=== PATIENT | male | born 1935 | race Caucasian/White ===

== ENCOUNTER → 2018-09-06 | Outpatient (REF) | payer MEDICARE ==
[~2018-09-06] MED LIST: ALLO300T2 PO; ASPI81TA85 PO; ATEN25TA PO; CARD8TAB2 PO; DOXA4TAB PO; ENAL20TA PO; TYLE325T5 PO; TYLE650T30 PO
[2018-09-06 13:58] LABS: APPEARANCE, URINE CLEAR (CLEAR); BACTERIA, URINE AUTO NEGATIVE (NEGATIVE); BILIRUBIN, URINE AUTO NEGATIVE (NEGATIVE); BLOOD, URINE BLOOD 1+ (NEGATIVE); COLOR, URINE YELLOW (YELLOW); GLUCOSE, URINE (UA) AUTO NEGATIVE (NEGATIVE); KETONE, URINE AUTO NEGATIVE (NEGATIVE); LEUKOCYTE ESTERASE, URINE AUTO NEGATIVE (NEGATIVE); NITRITE, URINE AUTO NEGATIVE (NEGATIVE); PROTEIN, URINE AUTO NEGATIVE (NEGATIVE); RBC, URINE AUTO 5 /HPF (0-3); SQUAMOUS EPITHELIAL CELL UR AU 0 /HPF (0-6); UROBILINOGEN, URINE AUTO 0.2 mg/dL (0.0-2.0); WBC, URINE AUTO 0 /HPF (0-3)
== END ==
LOC: M SMT 13:01
PROVIDERS: ATTEND Nurse Practitioner Family
DX: R32 Unspecified urinary incontinence (principal)
CPT/HCPCS: 51798; 81001; 87086; G0463

== ENCOUNTER → 2018-10-19 | Outpatient (REF) | payer MEDICARE ==
[~2018-10-19] MED LIST changes: +B-122500 PO; +CALC1TAB74 PO; +DOXA1TAB40 PO; +ECOT81TA5 PO; +HYDR-3910 PO; +TOLT2CAP4 PO; +TYLE650T35 PO; +ZYLO300T6 PO
[2018-10-19 14:16] LABS: APPEARANCE, URINE CLEAR (CLEAR); BACTERIA, URINE AUTO NEGATIVE (NEGATIVE); BILIRUBIN, URINE AUTO NEGATIVE (NEGATIVE); BLOOD, URINE BLOOD 1+ (NEGATIVE); COLOR, URINE YELLOW (YELLOW); GLUCOSE, URINE (UA) AUTO NEGATIVE (NEGATIVE); KETONE, URINE AUTO NEGATIVE (NEGATIVE); LEUKOCYTE ESTERASE, URINE AUTO NEGATIVE (NEGATIVE); MUCUS, URINE SMALL (NEGATIVE); NITRITE, URINE AUTO NEGATIVE (NEGATIVE); PROTEIN, URINE AUTO 1+ mg/dL (NEGATIVE); RBC, URINE AUTO 2 /HPF (0-3); SPECIFIC GRAVITY URINE AUTO 1.016 (1.002-1.035); SQUAMOUS EPITHELIAL CELL UR AU 0 /HPF (0-6); UROBILINOGEN, URINE AUTO 0.2 mg/dL (0.0-2.0); WBC, URINE AUTO 1 /HPF (0-3)
== END ==
LOC: M LAB REF 13:34
PROVIDERS: ATTEND Nurse Practitioner Family
DX: R31.29 Other microscopic hematuria (principal)
CPT/HCPCS: 51798; 81001; 87086; G0463

== ENCOUNTER 2018-10-22 10:07 | Inpatient (IN) | payer MEDICARE ==
[~2018-10-22] VITALS: Ht 180.3 cm; Wt 95.1 kg
[2018-10-22] VITALS (14 sets, daily range): BP systolic 116–188; BP diastolic 63–88
[~2018-10-22 10:07] MED LIST changes: -B-122500 PO; -CALC1TAB74 PO; -DOXA1TAB40 PO; -ECOT81TA5 PO; -HYDR-3910 PO; -TOLT2CAP4 PO; -TYLE650T35 PO; -ZYLO300T6 PO
[2018-10-22] MEDS ORDERED: ENAL20TA PO ×2 (10:22→13:54)
[2018-10-22] MEDS ORDERED: HYDR-3910 PO (10:22)
[2018-10-22 10:56] LABS: BASO % 0.6 % (0.0-1.0); EOS # 0.1 10^3/uL (0.0-0.5); EOS % 1.1 % (0.0-3.0); HEMATOCRIT 42.2 % (42.0-52.0); LYMPH % 13.7 % (24.0-44.0); MEAN CORPUSCULAR HEMOGLOBIN 32.7 pg (27.0-33.0); MEAN CORPUSCULAR HGB CONC 33.2 g/dl (32.0-36.5); MEAN CORPUSCULAR VOLUME 98.6 fl (80.0-96.0); MONO # 0.5 10^3/uL (0.0-0.8); MONO % 7.3 % (0.0-5.0); NEUTROPHILS # 5.4 10^3/uL (1.5-8.5); NEUTROPHILS % 77.2 % (36.0-66.0); PLATELET COUNT, AUTOMATED 166 10^3/uL (150-450); RED BLOOD COUNT 4.28 10^6/uL (4.30-6.10)
--- NOTE | 2018-10-22 11:16 | REP ---
Clinical: Shortness of breath. Technique: Portable semiupright view of the chest. Comparison: 07/08/2012. Findings: Cardiomegaly is appreciated along with bibasilar infiltrates and suspected layering effusions (left greater than right). Differential diagnosis includes multifocal pneumonia as well as early pulmonary edema. No pneumothorax. Skeletal structures are intact. Impression: Multifocal infiltrates with small layering effusions versus early pulmonary edema. Electronically Signed by Hira Adamson MD 10/22/2018 11:07 A
[2018-10-22 11:27] LABS: CK-MB VALUE MASS 3.3 NG/ML (<3.6); CREATININE FOR GFR 1.3 MG/DL (0.70-1.30); GLOMERULAR FILTRATION RATE 56.1 (>35); MB/CK RELATIVE INDEX 2.46 (< OR =4); POTASSIUM SERUM 3.8 MEQ/L (3.5-5.1); TROPONIN I 0.41 NG/ML (< 0.10)
[2018-10-22 13:07] LABS: CK-MB VALUE MASS 2.9 NG/ML (<3.6); MB/CK RELATIVE INDEX 2.59 (< OR =4); TROPONIN I 0.38 NG/ML (< 0.10)
--- NOTE | 2018-10-22 13:07 | REP ---
Clinical: Shortness of breath. Technique: Axial noncontrast images from the thoracic inlet to the upper abdomen with coronal and sagittal re-formations. Comparison: None. Findings: There is a 3 cm non solid ill-defined area of density in the right upper lobe (image 20), and a 3 cm near solid density in the apical right lower lobe (image 48). Small to moderate bilateral pleural effusions along with scattered areas of infiltrate/atelectasis involving the lingula and lower lobes are also identified as well as cardiomegaly and a small pericardial effusion with evidence for cephalization and pulmonary vascular prominence. Mediastinal and hilar lymph nodes appear reactive and measure up to approximately 15 mm. Tracheobronchial tree is relatively patent. No pneumothorax. Atherosclerotic changes to the thoracic aorta and coronary arteries noted without aortic aneurysm. Surrounding musculoskeletal structures demonstrate degenerative changes without focal osseous abnormality. Impression: 1. Findings are compatible with pulmonary edema as well as patchy ill-defined opacities and areas of consolidation which require follow-up to resolution. Superimposed multifocal pneumonia as well as further pathology including malignancy cannot be excluded. Electronically Signed by Hira Adamson MD 10/22/2018 12:59 P
[2018-10-22] MEDS ORDERED: FUROSEMIDE 40 MG/4 ML VIAL (J1940) IV ONE (13:15)
[2018-10-22] MEDS ORDERED: **hydrALAZINE HCL** 25 MG TAB PO ONE (13:30)
[2018-10-22] MEDS: FUROSEMIDE 40 MG/4 ML VIAL (J1940) IV SCH ×2 (13:41→20:13)
[2018-10-22] MEDS ORDERED: TOLT2CAP4 PO (13:54)
[2018-10-22] MEDS ORDERED: B-122500 PO (13:54)
[2018-10-22] MEDS ORDERED: DOXA1TAB40 PO (13:54)
[2018-10-22] MEDS ORDERED: ECOT81TA5 PO (13:54)
[2018-10-22] MEDS ORDERED: ZYLO300T6 PO (13:54)
[2018-10-22] MEDS ORDERED: TYLE650T35 PO (13:54)
[2018-10-22] MEDS ORDERED: CALC1TAB74 PO (13:54)
--- NOTE | 2018-10-22 14:48 | HPEPDOC ---
[facility] Medical History & Physical Date of Admission Oct 22, 2018 Date of Service: Oct 22, 2018 History and Physical CHIEF COMPLAINT: sob HISTORY OF PRESENT ILLNESS: 83 yo male with several day history of worsening shortness of breath, dyspnea on exertion and orthopnea. Also notes 10 lbs unintentional weight gain. Denies chest pain, abdominal pain, nausea, vomiting or diarrhea. PAST MEDICAL HISTORY: 1. PAC's 2. HTN 3. prostate CA s/p seeding 2005 4. ELADIA PAST SURGICAL HISTORY: 1. right kidney surgery due to ureteral obstruction - 2014 - nikolas Joe SOCIAL HISTORY: Marital status: 61 years Tobacco use: never smoked ALLERGIES: Please see below. REVIEW OF SYSTEMS: Negative except as per HPI. HOME MEDICATIONS: Please see below. PHYSICAL EXAMINATION: VITAL SIGNS: See below GENERAL APPEARANCE: NAD, lying comfortably in bed, elderly HEENT: NC/AT, EOMI, PERRL, nasal cannula in place CARDIOVASCULAR: +S1S2, irregular LUNGS: bilateral crackles ABDOMEN: soft, NT, +BS EXTREMITIES: trace peripheral edema LABORATORY DATA: See below. MICROBIOLOGY: Please see below. ASSESSMENT: 83 yo male for decompensated heart failure, with PMHx HTN, prostate CA. #acute hypoxic respiratory failure - appears secondary to CHF possibly complicated with PNA #CHF - unknown type - echo pending - IV lasix, telemetry monitoring - I/O's, daily weight #bradycardia/pauses - difficult to ascertain if symptomatic as patient is SOB with fluid overload - cardiology c/s pending - thyroid profile pending #CAP - start ceftriaxone/azithro - check SCx, respiratory panel - check procalcitonin - IS/acapella #HTN - continue home meds - hydralazine, ACEI #DVT prophylaxis - heparin SC Vital Signs Vital Signs Date Time Temp Pulse Resp B/P (MAP) Pulse Ox O2 Delivery O2 Flow Rate FiO2 10/22/18 13:41 174/85 10/22/18 12:15 72 96 Nasal Cannula 2.0 10/22/18 10:45 24 10/22/18 10:07 98.0 Laboratory Data Labs 24H Laboratory Tests 2 10/22/18 10:40: Immature Granulocyte % (Auto) 0.1, White Blood Count 7.0, Red Blood Count 4.28L, Hemoglobin 14.0, Hematocrit 42.2, Mean Corpuscular Volume 98.6H, Mean Corpuscular Hemoglobin 32.7, Mean Corpuscular Hemoglobin Concent 33.2, Red Cell Distribution Width 14.6H, Platelet Count 166, Neutrophils (%) (Auto) 77.2H, Lymphocytes (%) (Auto) 13.7L, Monocytes (%) (Auto) 7.3H, Eosinophils (%) (Auto) 1.1, Basophils (%) (Auto) 0.6, Neutrophils # (Auto) 5.4, Lymphocytes # (Auto) 1.0L, Monocytes # (Auto) 0.5, Eosinophils # (Auto) 0.1, Basophils # (Auto) 0.0, Nucleated Red Blood Cells % (auto) 0.0, Anion Gap 7L, Glomerular Filtration Rate 56.1, Blood Urea Nitrogen 24H, Creatinine 1.30, Sodium Level 140, Potassium Level 3.8, Chloride Level 105, Carbon Dioxide Level 28, Calcium Level 9.0, Total Creatine Kinase 134, Creatine Kinase MB 3.3, Creatine Kinase MB Relative Index 2.46, Troponin I 0.41H, RV-Tfa-V-Type Natriuretic Peptide [id number] 10/22/18 12:28: Total Creatine Kinase 112, Creatine Kinase MB 2.9, Creatine Kinase MB Relative Index 2.59, Troponin I 0.38H CBC/BMP Laboratory Tests 10/22/18 10:40 Red Blood Count 4.28 L, Mean Corpuscular Volume 98.6 H, Mean Corpuscular Hemoglobin 32.7, Mean Corpuscular Hemoglobin Concent 33.2, Red Cell Distribution Width 14.6 H, Neutrophils (%) (Auto) 77.2 H, Lymphocytes (%) (Auto) 13.7 L, Monocytes (%) (Auto) 7.3 H, Eosinophils (%) (Auto) 1.1, Basophils (%) (Auto) 0.6, Neutrophils # (Auto) 5.4, Lymphocytes # (Auto) 1.0 L, Monocytes # (Auto) 0.5, Eosinophils # (Auto) 0.1, Basophils # (Auto) 0.0, Calcium Level 9.0, Total Creatine Kinase 134 Home Medications Scheduled Allopurinol (Zyloprim) 300 Mg Tablet, 300 MG PO DAILY Aspirin (Ecotrin) 81 Mg Tablet.dr, 81 MG PO DAILY Calcium Carbonate/Vitamin D3 (Calcium 600-Vit D3 400 Tablet) 1 Each Tablet, 1 TAB PO DAILY Cyanocobalamin (Vitamin B-12) (Vitamin B12) 2,500 Mcg Tablet, 2,500 MCG PO DAILY Doxazosin Mesylate (Doxazosin Mesylate) 4 Mg Tablet, 8 MG PO QHS Enalapril Maleate (Enalapril Maleate) 20 Mg Tablet, 20 MG PO BID Hydralazine HCl (Hydralazine HCl) 25 Mg Tablet, 25 MG PO TID Tolterodine Tartrate (Tolterodine Tartrate ER) 2 Mg Cap.er.24h, 2 MG PO DAILY PATIENT HAS NOT STARTED TAKING YET, NEW OF 10/19/18. PATIENT WAS TAKING OXYBUTYNIN 5MG BID, BUT BEGAN EXPERIENCING DRY MOUTH AND A COUGH. UROLOGIST SW ITCHED TO TOLTERODINE Scheduled PRN Acetaminophen (Tylenol Arthritis) 650 Mg Tablet.er, 650 MG PO Q8H PRN for PAIN Allergies Coded Allergies: No Known Allergies (Unverified , 10/22/18) A-FIB/CHADSVASC A-FIB History Current/History of A-Fib/PAF?: No Current PO Anticoag Therapy: No JONES MOREJON MD Oct 22, 2018 14:48
[2018-10-22] MEDS: cefTRIAXone SOD 1 GM in D5W MINI-BAG PLUS 50 ML IV SCH (16:15)
[2018-10-22] MEDS: **hydrALAZINE HCL** 25 MG TAB PO SCH ×2 (16:15→21:53)
[2018-10-22] MEDS: AZITHROMYCIN INJ 500 MG, VIAL MATE ADAPTER 1 EACH in D5W 250 ML IV SCH (17:43)
--- NOTE | 2018-10-22 19:24 | ECGEPIP ---
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
--- NOTE | 2018-10-22 19:27 | ECGEPIP ---
[facility] - ED Test Date: 2018-10-22 Pat Name: BRIANNA VALENTIN Department: Room: - Gender: Male E Tailer: : 1935 Requested By: Erinn Mckee Order Number: [id number] Reading MD: Andrae Park Measurements Intervals [place] Rate: 72 P: MS: 0 QRS: -21 QRSD: 111 T: 135 QT: 452 QTc: 496 Interpretive Statements ATRIAL FIBRILLATION WITH ABERRANT CONDUCTION OR VENTRICULAR PREMATURE COMPLEXES BORDERLINE LEFT AXIS DEVIATION POSSIBLE LEFT VENTRICULAR HYPERTROPHY ST DEVIATION AND MODERATE T-WAVE ABNORMALITY, CONSIDER LATERAL ISCHEMIA SIMILAR TO PRIOR ON SAME DATE Electronically Signed on 10-22-2018 19:27:15 EDT by Andrae Park
--- NOTE | 2018-10-22 19:31 | ECGEPIP ---
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
[2018-10-22 19:48] LABS: CK-MB VALUE MASS 2.8 NG/ML (<3.6); MB/CK RELATIVE INDEX 1.12 (< OR =4); TROPONIN I 0.32 NG/ML (< 0.10)
[2018-10-22 20:03] LABS: FREE THYROXINE INDEX 2.5 % (1.4-3.8); THYROID STIMULATING HORMONE 1.99 uIU/ML (0.358-3.740); THYROXINE (T4) 6.2 UG/DL (4.5-12.0)
[2018-10-22] MEDS ORDERED: DOXAZOSIN MESYLATE 4 MG TAB PO SCH (21:00)
[2018-10-22 21:45] LABS: CALCIUM LEVEL 8.6 MG/DL (8.8-10.2); CREATININE FOR GFR 1.23 MG/DL (0.70-1.30); GLOMERULAR FILTRATION RATE 59.8 (>35); MAGNESIUM LEVEL 2.1 MG/DL (1.8-2.4); POTASSIUM SERUM 3.5 MEQ/L (3.5-5.1)
[2018-10-22] MEDS: HEPARIN SOD (PORCINE) 5000 UNITS/ML VIAL SQ SCH (21:52)
[2018-10-22] MEDS: ENALAPRIL MALEATE 10 MG TAB PO SCH (22:15)
[2018-10-23] VITALS (19 sets, daily range): BP systolic 72–157; BP diastolic 56–99
[2018-10-23] MEDS: FUROSEMIDE 40 MG/4 ML VIAL (J1940) IV SCH ×4 (02:18→17:43)
[2018-10-23] MEDS: HEPARIN SOD (PORCINE) 5000 UNITS/ML VIAL SQ SCH ×2 (05:26→15:31)
[2018-10-23 05:28] LABS: HEMATOCRIT 42.3 % (42.0-52.0); HEMOGLOBIN 14.1 g/dl (13.5-17.5); MEAN CORPUSCULAR HEMOGLOBIN 31.9 pg (27.0-33.0); MEAN CORPUSCULAR HGB CONC 33.3 g/dl (32.0-36.5); MEAN CORPUSCULAR VOLUME 95.7 fl (80.0-96.0); PLATELET COUNT, AUTOMATED 189 10^3/uL (150-450); RED BLOOD COUNT 4.42 10^6/uL (4.30-6.10); WHITE BLOOD COUNT 7.6 10^3/uL (4.0-10.0)
[2018-10-23 05:48] LABS: BLOOD UREA NITROGEN 24 MG/DL (7-18); CALCIUM LEVEL 8.7 MG/DL (8.8-10.2); CARBON DIOXIDE LEVEL 30 MEQ/L (21-32); CHLORIDE LEVEL 104 MEQ/L (98-107); CREATININE FOR GFR 1.18 MG/DL (0.70-1.30); GLOMERULAR FILTRATION RATE > 60.0 (>35); GLUCOSE, FASTING 109 MG/DL (70-100); MAGNESIUM LEVEL 2.2 MG/DL (1.8-2.4); POTASSIUM SERUM 3.2 MEQ/L (3.5-5.1); SODIUM LEVEL 141 MEQ/L (136-145)
[2018-10-23] MEDS ORDERED: POTASSIUM CHLORIDE 10 MEQ SR TABLET PO ONE (07:00)
--- NOTE | 2018-10-23 08:56 | ECGEPIP ---
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
[2018-10-23] MEDS: CYANOCOBALAMIN 500 MCG TAB PO SCH (09:11)
[2018-10-23] MEDS: ALLOPURINOL 300 MG TAB PO SCH (09:12)
[2018-10-23] MEDS: TOLTERODINE TARTRATE 2 MG LA CAP (DETROL LA) PO SCH (09:12)
[2018-10-23] MEDS: ASPIRIN 81 MG ENTERIC TAB PO SCH (09:12)
[2018-10-23] MEDS: **hydrALAZINE HCL** 25 MG TAB PO SCH ×2 (09:12→15:31)
--- NOTE | 2018-10-23 09:55 | IPNPDOC ---
Text Note Date of Service The patient was seen on 10/23/18. NOTE Subjective: Patient seen and examined at bedside. Episodes of bradycardia overnight, otherwise no acute overnight events reported. Patient has no new medical complaints this morning. Objective: VITAL SIGNS: See below GENERAL APPEARANCE: NAD, lying comfortably in bed, elderly HEENT: NC/AT, EOMI, PERRL, nasal cannula in place CARDIOVASCULAR: +S1S2, irregular LUNGS: bilateral crackles ABDOMEN: soft, NT, +BS EXTREMITIES: trace peripheral edema LABORATORY DATA: See below. MICROBIOLOGY: Please see below. ASSESSMENT: 83 yo male for decompensated heart failure, with PMHx HTN, prostate CA. #acute hypoxic respiratory failure - appears secondary to CHF possibly complicated with PNA - wean O2 #CHF - echo pending - IV lasix, telemetry monitoring - I/O's, daily weight #bradycardia/pauses - difficult to ascertain if symptomatic as patient is SOB with fluid overload - cardiology c/s pending - thyroid profile pending #CAP - start ceftriaxone/azithro - check SCx - respiratory panel WNL - check procalcitonin - IS/acapella #HTN - continue home meds - hydralazine, ACEI #DVT prophylaxis - heparin SC VS,Fishbone, I+O VS, Fishbone, I+O Laboratory Tests 10/22/18 10:40 Red Blood Count 4.28 L, Mean Corpuscular Volume 98.6 H, Mean Corpuscular Hemoglobin 32.7, Mean Corpuscular Hemoglobin Concent 33.2, Red Cell Distribution Width 14.6 H, Neutrophils (%) (Auto) 77.2 H, Lymphocytes (%) (Auto) 13.7 L, Monocytes (%) (Auto) 7.3 H, Eosinophils (%) (Auto) 1.1, Basophils (%) (Auto) 0.6, Neutrophils # (Auto) 5.4, Lymphocytes # (Auto) 1.0 L, Monocytes # (Auto) 0.5, Eosinophils # (Auto) 0.1, Basophils # (Auto) 0.0, Calcium Level 9.0, Total Creatine Kinase 134 10/22/18 21:04 Calcium Level 8.6 L 10/23/18 05:16 Red Blood Count 4.42, Mean Corpuscular Volume 95.7, Mean Corpuscular Hemoglobin 31.9, Mean Corpuscular Hemoglobin Concent 33.3, Red Cell Distribution Width 14.4, Calcium Level 8.7 L Vital Signs Date Time Temp Pulse Resp B/P (MAP) Pulse Ox O2 Delivery O2 Flow Rate FiO2 10/23/18 09:12 157/70 10/23/18 08:13 98.0 73 20 93 3.0 10/22/18 12:15 Nasal Cannula I&O- Last 24 Hours up to 6 AM 10/23/18 06:00 Intake Total 680 ml Output Total 6500 ml Balance -5820 ml JONES MOREJON MD Oct 23, 2018 09:55
[2018-10-23] MEDS: ENALAPRIL MALEATE 10 MG TAB PO SCH (11:20)
[2018-10-23] MEDS: cefTRIAXone SOD 1 GM in D5W MINI-BAG PLUS 50 ML IV SCH (15:31)
[2018-10-23] MEDS: AZITHROMYCIN INJ 500 MG, VIAL MATE ADAPTER 1 EACH in D5W 250 ML IV SCH (17:47)
[2018-10-23] MEDS ORDERED: SPIRONOLACTONE 12.5MG PER 1/2 TABLET PO ONE (20:00)
[2018-10-23] MEDS: TAMSULOSIN 0.4 MG CAP PO SCH (20:41)
[2018-10-23] MEDS ORDERED: **hydrALAZINE HCL** 25 MG TAB PO SCH (21:00)
[2018-10-23] MEDS ORDERED: ISOSORBIDE DIN. (ISORDIL) 30 MG TAB PO SCH (21:00)
[2018-10-23] MEDS ORDERED: **hydrALAZINE** 50 MG TAB PO SCH (21:00)
[2018-10-23] MEDS ORDERED: NS 1,000 ML IV ONE (21:30)
[2018-10-23] MEDS ORDERED: KCL 10MEQ/100ML SWI (KRUN) 10 MEQ in APPROPRIATE DILUENT 1 EA IV ONE ×2 (21:45→22:45)
[2018-10-23 22:34] LABS: CALCIUM LEVEL 8.5 MG/DL (8.8-10.2); CREATININE FOR GFR 1.82 MG/DL (0.70-1.30); GLOMERULAR FILTRATION RATE 38.1 (>35); POTASSIUM SERUM 3.8 MEQ/L (3.5-5.1)
[2018-10-24] VITALS (15 sets, daily range): BP systolic 100–156; BP diastolic 56–94
[2018-10-24 05:41] LABS: ALBUMIN 2.8 GM/DL (3.2-5.2); BILIRUBIN,TOTAL 0.9 MG/DL (0.2-1.0); CALCIUM LEVEL 7.9 MG/DL (8.8-10.2); CREATININE FOR GFR 1.36 MG/DL (0.70-1.30); GLOMERULAR FILTRATION RATE 53.3 (>35); POTASSIUM SERUM 4.1 MEQ/L (3.5-5.1); TOTAL PROTEIN 5.5 GM/DL (6.4-8.2)
[2018-10-24] MEDS ORDERED: LR 1,000 ML IV SCH ×2 (06:00→12:00)
--- NOTE | 2018-10-24 07:00 | ECHO ---
INPATIENT ECHOCARDIOGRAM REPORT DATE OF PROCEDURE: 10/23/2018 AGE: 83 GENDER: Male HEIGHT: 70 inches WEIGHT: 220 pounds BODY SURFACE AREA: 2.18 meters squared INPATIENT ICU ROOM: 3209 REFERRING PHYSICIAN: Dr. Kwame Youssef INDICATION: Heart failure (unspecified). MEASUREMENTS: 2-D measurements: RV - 4.0 cm LV - 5.6 cm Septum 1.3 cm Posterior wall 1.2 cm Aortic root 5.2 cm LA - 4.4 cm LVEF of 40 - 45% Doppler measurements: AV - 1.20 meters per second LVOT 1.1 meters per second LVOT diameter 2.3 cm MV-E 50, A 100 E/A ratio 0.5 Early mitral deceleration time 204 milliseconds E prime 5.6, A prime 8.5, E/E prime ratio 8.9 PCWP 14.3 mmHg PV - 0.9 meters per second Pulmonary artery acceleration time 81 milliseconds RVSP 45 mmHg IVC - 2.6 cm COMMENTS: Normal sinus rhythm with frequent PACs and pauses. No intraventricular conduction disturbance. Technically challenging study in light of the patient's body habitus but diagnostically useful information was still obtained. Borderline dilated and hypertrophied left ventricle with septal wall motion abnormality and at least moderate impairment of global resting systolic function. At least mildly dilated left atrium with impairment of LV diastolic function and at least borderline elevated mean left atrial pressure. Right heart chamber sizes were upper limits of normal to slightly dilated with adequate right ventricular free wall motion and Doppler evidence at least moderate pulmonary hypertension. At least mildly dilated inferior vena cava with currently adequate respiratory collapse in keeping with central venous pressure at least borderline elevated. Mild aortic valvular sclerosis without stenosis with mild - moderate insufficiency. Moderately dilated aortic root and proximal ascending aorta. Minor degenerative changes of the mitral valvular apparatus with no more than mild insufficiency. No apparent intracardiac mass. Minuscule posterior pericardial effusion. cc: MD Joe Geiger MD
[2018-10-24 08:03] LABS: BASO % 0.6 % (0.0-1.0); EOS # 0.1 10^3/uL (0.0-0.5); EOS % 1.9 % (0.0-3.0); HEMATOCRIT 36.3 % (42.0-52.0); HEMOGLOBIN 12.5 g/dl (13.5-17.5); LYMPH # 1.4 10^3/uL (1.5-5.0); MEAN CORPUSCULAR HEMOGLOBIN 33.7 pg (27.0-33.0); MEAN CORPUSCULAR HGB CONC 34.4 g/dl (32.0-36.5); MEAN CORPUSCULAR VOLUME 97.8 fl (80.0-96.0); MONO # 0.6 10^3/uL (0.0-0.8); MONO % 8.7 % (0.0-5.0); NEUTROPHILS # 4.7 10^3/uL (1.5-8.5); NEUTROPHILS % 68.5 % (36.0-66.0); PLATELET COUNT, AUTOMATED 233 10^3/uL (150-450); RED BLOOD COUNT 3.71 10^6/uL (4.30-6.10); WHITE BLOOD COUNT 6.9 10^3/uL (4.0-10.0)
[2018-10-24] MEDS: CYANOCOBALAMIN 500 MCG TAB PO SCH ×2 (08:07→13:15)
[2018-10-24] MEDS: ASPIRIN 81 MG ENTERIC TAB PO SCH ×2 (08:07→13:14)
[2018-10-24] MEDS: TOLTERODINE TARTRATE 2 MG LA CAP (DETROL LA) PO SCH ×2 (08:07→13:15)
[2018-10-24] MEDS: ALLOPURINOL 300 MG TAB PO SCH ×2 (08:07→13:15)
[2018-10-24] MEDS: SPIRONOLACTONE 12.5MG PER 1/2 TABLET PO SCH ×2 (08:07→13:15)
[2018-10-24] MEDS ORDERED: CARVedilol 3.125 MG TAB PO SCH (09:00)
--- NOTE | 2018-10-24 09:33 | IPNPDOC ---
Text Note Date of Service The patient was seen on 10/24/18. NOTE Subjective: Patient seen and examined at bedside. Patient has no new medical complaints this morning. Objective: VITAL SIGNS: See below GENERAL APPEARANCE: NAD, lying comfortably in bed, elderly HEENT: NC/AT, EOMI, PERRL, nasal cannula in place CARDIOVASCULAR: +S1S2, irregular LUNGS: bibasilar crackles ABDOMEN: soft, NT, +BS EXTREMITIES: trace peripheral edema LABORATORY DATA: See below. MICROBIOLOGY: Please see below. ASSESSMENT: 83 yo male for decompensated heart failure, with PMHx HTN, prostate CA. #acute hypoxic respiratory failure - saturating well on room air now #CHF - echo shows systolic and diastolic dysfunction - I/O's, daily weight #bradycardia/pauses - plan for PPM today #CAP - check SCx - respiratory panel WNL - IS/acapella #HTN - continue home meds - hydralazine, ACEI #DVT prophylaxis - heparin SC Dispo: PPM today VS,Fishbone, I+O VS, Fishbone, I+O Laboratory Tests 10/23/18 21:49 Calcium Level 8.5 L 10/24/18 04:54 Red Blood Count 3.71 L, Mean Corpuscular Volume 97.8 H, Mean Corpuscular Hemoglobin 33.7 H, Mean Corpuscular Hemoglobin Concent 34.4, Red Cell Distribution Width 14.6 H, Neutrophils (%) (Auto) 68.5 H, Lymphocytes (%) (Auto) 20.0 L, Monocytes (%) (Auto) 8.7 H, Eosinophils (%) (Auto) 1.9, Basophils (%) (Auto) 0.6, Neutrophils # (Auto) 4.7, Lymphocytes # (Auto) 1.4 L, Monocytes # (Auto) 0.6, Eosinophils # (Auto) 0.1, Basophils # (Auto) 0.0 10/24/18 04:58 Calcium Level 7.9 L, Aspartate Amino Transf (AST/SGOT) 15, Alanine Aminotransf erase (ALT/SGPT) 19, Alkaline Phosphatase 58, Total Bilirubin 0.9, Total Protein 5.5 L, Albumin 2.8 L Vital Signs Date Time Temp Pulse Resp B/P (MAP) Pulse Ox O2 Delivery O2 Flow Rate FiO2 9/8/19 07:23 97.8 86 20 142/72 (95) 94 10/24/18 04:00 3.0 10/22/18 12:15 Nasal Cannula I&O- Last 24 Hours up to 6 AM 10/24/18 06:00 Intake Total 2495 ml Output Total 1500 ml Balance 995 ml JONES MOREJON MD Oct 24, 2018 09:33
[2018-10-24] MEDS ORDERED: LIDOCAINE 1% SDV INJ 30 ML VIAL As Ordered ONE (09:40)
[2018-10-24] MEDS ORDERED: ceFAZolin 2 GM/D5W 50 ML IV BAG (J0690 PER 500MG) As Ordered ONE (10:21)
[2018-10-24] MEDS ORDERED: MIDAZOLAM INJ 2 MG/2 ML VIAL (J2250) As Ordered ONE (10:54)
[2018-10-24] MEDS ORDERED: fentaNYL 100 MCG/2 ML INJECTION (J3010) As Ordered ONE (10:54)
[2018-10-24] MEDS ORDERED: ONDANSETRON 4MG/2ML VIAL (J2405) As Ordered ONE (10:54)
[2018-10-24] MEDS ORDERED: PROPOFOL 200 MG/20 ML VIAL As Ordered ONE (10:54)
[2018-10-24] MEDS ORDERED: ACETAMINOPHEN 650MG ER TAB (TYLENOL ARTHRITIS) PO PRN (11:30)
[2018-10-24] MEDS ORDERED: ONDANSETRON 4MG/2ML VIAL (J2405) IV PRN (12:00)
[2018-10-24] MEDS ORDERED: PERCOCET 5MG/325MG TAB PO PRN (12:00)
[2018-10-24] MEDS ORDERED: fentaNYL 100 MCG/2 ML INJECTION (J3010) IV PRN (12:00)
--- NOTE | 2018-10-24 12:15 | REP ---
Clinical: Status post pacemaker. Comparison: 10/22/2018. Findings: Dual lead pacemaker in satisfactory position. No pneumothorax. Cardiomegaly with continued evidence for pulmonary edema including cephalization, increased interstitial markings, bibasilar opacities and pleural effusions (left greater than right). No significant change from prior examination. Impression: 1. Pacemaker in satisfactory position. No pneumothorax. 2. Stable moderate pulmonary edema pattern. Electronically Signed by Hira Adamson MD 10/24/2018 12:06 P
--- NOTE | 2018-10-24 12:43 | RO ---
DATE OF PROCEDURE: 10/24/2018 PROCEDURE: Implantation of permanent dual chamber pacemaker. IMPLANTING DRILLER AND REAMER: Dr. Joe Ball ANESTHESIOLOGIST: Dr. Nuñez PREPROCEDURE DIAGNOSES: 1. Tachybrady syndrome. 2. Paroxysmal atrial flutter. 3. AV block (unspecified). POSTPROCEDURE DIAGNOSES: 1. Tachybrady syndrome. 2. Paroxysmal atrial flutter. 3. AV block (unspecified). ANESTHESIA: Monitored anesthesia care. DESCRIPTION OF PROCEDURE: The patient, in a fasting state, having signed informed consent and having received Ancef 2 grams IV premedication, the patient was taken to the operating theater. Skin electrodes were applied to facilitate continuous electrocardiographic monitoring. The left subclavian region was prepped and draped in the usual fashion. The skin was infiltrated with 1% Xylocaine and the left axillary vein was catheterized using a micropuncture technique. A 5 cm linear incision was made several centimeters below and parallel to the left clavicle. Dissection was carried down to the level of pectoralis fascia and a pocket was fashioned below the level of the incision line. Two bipolar screw in active fixation steroid eluting pacing leads were then positioned through the right ventricle apex and high right atrial appendage under fluoroscopic and electrocardiographic control. The ventricular lead ([employer], model number [id number], serial number [id number]) measurements were: Stimulation threshold 0.5, V 0.4 ms/impedance 667 ohms. The R wave amplitude measured 7.0 mV. The atrial lead ([employer], model number [id number], serial number [id number]) measurements were: Stimulation threshold 0.7, V 0.4 ms/impedance 428 ohms. The P wave amplitude measured 3.0 mV. These leads were secured into position with sleeve suture at the insertion site. They were then connected to a dual chamber pulse generator that was MRI compatible ([employer], model number [id number], serial number [id number]) and appropriate DDD pacing was documented. The pulse generator was placed and secured in position with a suture through the upper right hand corner of the epoxy header. The subcutaneous tissues were approximated using a running chromic suture. The skin was closed using katlin. Dry dressing was applied. The patient was returned to the recovery room in good condition. Estimated blood loss 10 mL. No apparent complications. At this point, we will resume his equipment monitor phototypesetting and plan on starting amiodarone with carvedilol to help with his multiple rhythm disturbances now he has a backup pacing system. Postoperative portable upright chest x-ray confirmed stable lead position with no pneumothorax and his EKG again confirmed appropriate pacer function. DAHLIA
[2018-10-24] MEDS: AMIODARONE 200 MG TAB (PACERONE) PO SCH ×3 (13:14→20:49)
[2018-10-24] MEDS: ISOSORBIDE DIN. (ISORDIL) 20 MG TAB PO SCH ×2 (13:15→17:23)
[2018-10-24] MEDS: **hydrALAZINE HCL** 25 MG TAB PO SCH ×2 (13:16→17:24)
[2018-10-24] MEDS ORDERED: **hydrALAZINE HCL** 25 MG TAB PO SCH (16:00)
[2018-10-24] MEDS ORDERED: SLF 3 ML SYR IV PRN (16:45)
[2018-10-24] MEDS: ceFAZolin SOD 1 GM in D5W MINI-BAG PLUS 50 ML IV SCH (17:57)
[2018-10-24] MEDS: CARVedilol 3.125 MG TAB PO SCH (17:57)
[2018-10-24] MEDS: TAMSULOSIN 0.4 MG CAP PO SCH (20:49)
[2018-10-24] MEDS: SLF 3 ML SYR IV SCH (22:00)
[2018-10-25] MEDS: CARVedilol 3.125 MG TAB PO SCH ×2 (01:16→06:06)
[2018-10-25] MEDS: ceFAZolin SOD 1 GM in D5W MINI-BAG PLUS 50 ML IV SCH ×2 (03:31→10:39)
[2018-10-25 04:00] VITALS: BP 134/83
[2018-10-25] MEDS: SLF 3 ML SYR IV SCH ×3 (06:07→21:21)
[2018-10-25 06:09] LABS: CALCIUM LEVEL 8.8 MG/DL (8.8-10.2); CREATININE FOR GFR 1.37 MG/DL (0.70-1.30); GLOMERULAR FILTRATION RATE 52.8 (>35); POTASSIUM SERUM 4.1 MEQ/L (3.5-5.1)
--- NOTE | 2018-10-25 06:39 | ECGEPIP ---
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
[2018-10-25] MEDS: ISOSORBIDE DIN. (ISORDIL) 20 MG TAB PO SCH ×3 (06:53→17:18)
[2018-10-25] MEDS: **hydrALAZINE HCL** 25 MG TAB PO SCH ×3 (06:54→17:18)
[2018-10-25 08:00] VITALS: BP 131/69
[2018-10-25] MEDS: AMIODARONE 200 MG TAB (PACERONE) PO SCH ×4 (09:05→21:20)
[2018-10-25] MEDS: TOLTERODINE TARTRATE 2 MG LA CAP (DETROL LA) PO SCH (09:05)
[2018-10-25] MEDS: ALLOPURINOL 300 MG TAB PO SCH (09:05)
[2018-10-25] MEDS: SPIRONOLACTONE 12.5MG PER 1/2 TABLET PO SCH (09:05)
[2018-10-25] MEDS: CYANOCOBALAMIN 500 MCG TAB PO SCH (09:05)
[2018-10-25] MEDS: ASPIRIN 81 MG ENTERIC TAB PO SCH (09:05)
[2018-10-25] MEDS: CARVedilol 6.25 MG TAB PO SCH ×2 (09:06→21:21)
--- NOTE | 2018-10-25 10:45 | CR ---
CARDIOLOGY CONSULTATION DATE OF CONSULTATION: 10/23/2018 REFERRING PHYSICIAN: Dr. Kwame Youssef, with copy to Dr. Jalen Alcala INDICATION: Heart failure (unspecified)/cardiac arrhythmia with significant bradyarrhythmia. 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 Walks up to several blocks at his own pace, ultimately limited by some shortness of breath and bilateral knee arthralgia. Has had a longstanding history of hypertension, but was unaware of cardiac enlargement or congestive heart failure. According to his 's observations and the patient's memory, his effort dyspnea has been gradually worsening, with lower leg swelling. He had been more acutely aware of shortness of breath, orthopnea and leg swelling the past few days prior to his admission. Yesterday he had presented to [facility], across from [facility], and with his symptoms and significant weight gain the past week, he was referred to [facility] emergency room. Evaluated by Dr. Marinelli, his initial vital signs showed a heart rate of 64 bpm and irregular, blood pressure 200/94, respiratory rate 22, oxygen saturation 94% on room air and he was afebrile. His complete blood count showed a normal white blood cell count and blood work showed only mild renal insufficiency, but a markedly elevated pro-BNP level. His chest x-ray was reported to show obvious cardiomegaly with pulmonary venous congestion and bilateral pleural effusions. Chest CT scan confirmed cardiomegaly with small pericardial effusion, but obvious pulmonary venous congestion and small to moderate bilateral pleural effusions. There were some atherosclerotic changes of his thoracic aorta and coronary arteries. He was admitted to Dr. Youssef's service and responded well to supplemental oxygen, restricted activities and salt and fluid and intravenous (IV) Lasix administration. In the past 24 hours, he has lost approximately 6 liters net negative fluid balance with a drop in his weight of 5 kg. Monitored on telemetry, this has shown a host of rhythm disturbances, multifocal atrial rhythm and variable atrioventricular (AV) block and paroxysmal atrial flutter/fibrillation, with ventricular response varying from 120 to 36 bpm. Cardiology consultation was placed. CARDINAL CARDIAC SYMPTOMS: Chest pain: Patient adamantly denies any history of effort-related chest discomfort, but underwent stress testing in 2002 prompted by abnormal EKG. Abnormal stress heart scan lead to cardiac catheterization, which reportedly showed no significant coronary blockages. Denies any history of heartburn, reflux, dysphagia or gastrointestinal (GI) bleeding. Shortness of breath: Was never a smoker, but does admit to a weight problem (weighed 135 pounds at age 18, maximum weight as much as 250 pounds; had lost down to 190 pounds several years ago only to gain some 30 pounds in the past year and 10 pounds in the past week). Has developed a dry cough and worsening shortness of breath, as described above. Documented obstructive sleep apnea with prior continuous positive airway pressure (C-PAP) therapy, followed by [facility]. Denies prior hemoptysis. Remote history of pneumonia, but no hospitalization. Orthopnea, sleeping a recliner only the past week. No history of rheumatic fever. Remote history of heart murmur. Treated hypertension since his 40s and unaware of cardiomegaly despite his x-ray findings. Effort dyspnea and orthopnea have dramatically improved with his diuresis here in hospital. Palpitations: The patient does recall having an awareness of very rapid heart action at the time of stress heart scan 2002, but customarily has no awareness of his heart action. Longstanding history of irregular pulse. No family history of premature sudden cardiac or congenital deafness. Admits to drinking two - three cups of caffeinated coffee daily. Occasional glass of iced tea during the summer. Drinks an average of four - five bottles of beer weekly. Unaware of thyroid dysfunction. Does not use [id number]-[id number] decongestants, energizers or dietary aids. Near syncope/syncope: Denies any history of dizziness or loss of consciousness. His only falls have been related to tripping or stumbling. Embolic phenomenon: Denies any history of lateralizing neurological deficit or blue toe syndrome. Has had flank pain and hematuria related to kidney stones and prostate problems. Claudication/peripheral venous disease: Has bilateral knee arthralgia with walking, but no typical effort-related calf discomfort. Longstanding varicose veins with occasional ankle swelling at the end of the day for several years, but markedly worse since July of this past year and upon admission. Unaware of prior phlebitis. CORONARY RISK FACTORS: Advanced age, obesity, chronic hypertension, dietary control diabetes mellitus. No hypercholesterolemia or family history of premature coronary disease. OTHER PAST MEDICAL/SURGICAL HISTORY: 1. Obstructive sleep apnea. 2. Prior colonic polypectomy. 3. Remote appendectomy. 4. Thoracic ectasia dating back to at least 2002. 5. History of diverticular disease of the colon. 6. Prior internal hemorrhoids. 7. Cancer the prostate 2007, treated with radioactive seeds (Dr. Roblero and Dr. Larsen, urologist in [place]). 8. Prior gout. 9. Kidney stones. 10. Mild renal insufficiency. 11. Prior right hydronephosis requiring laparoscopic ureteric intervention 2014, urology in [place]. 12. Urinary tract infection. 13. Overflow incontinence and urinary dripping. 14. Chronic venous insufficiency. SYSTEMS REVIEW: Patient denies any recent fever, chills. Reports weight gain, as mentioned above. No history of headaches. Wears corrective lenses. Slight reduced hearing acuity. Missing teeth. No problems with his appetite or swallowing, but has noticed considerable abdominal swelling with his heart failure. Denies change in bowel habit. No GI bleeding. Overflow urinary incontinence, as mentioned, treated with oxybutynin. Bilateral knee arthralgia. No history of allergies or abnormal bruising. All other systems review is negative. MEDICATIONS: On admission his medications included: - enalapril 20 mg by mouth twice a day - hydralazine 25 mg three times a day - aspirin 81 mg daily - doxazosin 8 mg at bedtime - tolterodine tartrate 2 mg daily (the patient had not been starting this; he had been using his oxybutynin 5 mg twice a day) - vitamin B12 2500 mcg by mouth daily - calcium with vitamin D 600/400 international units 1 tablet daily - allopurinol 3 mg daily - Tylenol arthritic strength 1 tablet three times a day as needed ALLERGIES: None known. PHYSICAL EXAMINATION: CONSTITUTIONAL: Overweight elderly male, currently comfortable, lying with the head of the bed elevated 30 degrees. No pallor or distress. VITAL SIGNS: Heart rate averaging 64 bpm and very irregular, blood pressure 127/64 supine, unchanged upon sitting with legs dependent, respiratory rate 18 per minute, oxygen saturation 95% on room air. Afebrile. Weight 202 pounds, height 71 inches. Current body mass index (BMI) 28 EYES: Arcus senilis, but no pallor or icterus. Few missing teeth with partials and normal oral moisture. No central cyanosis. NECK: Trachea midline. Neck veins were elevated at least 4 cm above the sternal angle. Thyroid not enlarged. RESPIRATORY: At least slightly barrel-chested, with good chest expansion. Has inspiratory crepitations approximately one-third up posteriorly, but not anteriorly. No expiratory rhonchi. CARDIOVASCULAR: Apical impulse just lateral to the midline fifth costal space. Heart sounds were somewhat distant and quite variable. No clear audible gallop. Has a soft but variable systolic ejection murmur, grade 1-2/6 along the left sternal border. No audible diastolic murmur. No rub. Carotid upstrokes were normal, with variable volume related to his arrhythmia. No audible bruits. Upper extremity pulses were symmetrical and normal. Femoral pulses were normal. Pedal pulses were symmetrically decreased, but somewhat difficult due to ongoing ankle swelling. Few varicose veins, both lower legs. Ongoing pitting edema approximately one-half up both lower legs, but not over the sacrum. EXTREMITIES: No clubbing, peripheral cyanosis or splinter hemorrhages. Dupuytren's contracture right hand GASTROINTESTINAL (GI): Overweight, soft and nontender. Unable to detect any hepatosplenomegaly. Abdominal aorta was not palpable. No bruits. Rectal examination not indicated. MUSCULOSKELETAL: No obvious joint deformities. Normal-appearing muscular strength and tone for his age. Normal spine curvature. Gait in his room was normal. NEURO/PSYCH: Bright, alert and oriented. Gave me a fair history for his age. Eye, facial, extremity movements were symmetrical and normal. No abnormal movements. SKIN: No rashes, ecchymotic lesions, pallor or icterus. Mild degenerative changes in the skin both lower legs. INVESTIGATIONS: Portable upright chest x-ray taken in the emergency room yesterday was reviewed independently and shows obvious cardiomegaly with tortuous thoracic aorta. Pulmonary venous congestion with bilateral pleural effusions. Chest CT scan without contrast: Study performed yesterday was also reviewed independently and shows at least a moderately sized aneurysmal dilatation of the aortic root with at least a mildly dilated proximal ascending aorta. His pulmonary trunk was also dilated at 3.9 cm. There was some calcification of the thoracic aorta and coronary arteries. Small pericardial effusion, at least moderately dilated right ventricle. Left ventricle upper limits of normal to mildly dilated, with at least a moderately dilated left and right atria. His inferior vena cava was also moderately dilated. Moderate bilateral pleural effusions. EKGs: First study performed in the emergency room reviewed independently was reported as showing atrial fibrillation, but this is not true. He has underlying multifocal atrial rhythm with varying first-degree AV block and blocked premature atrial contractions (PACs). Incomplete left bundle branch block with prominent voltages in augmented Vector Left (aVL) with strain pattern in keeping with left ventricle hypertrophy by Franklin criteria. Poor precordial R-wave progression and QS pattern in III and aVF. Could not rule out a prior septal/inferior infarction. Followup studies showed no evolutionary change. MONITORING: monitoring coordinator: As mentioned this has shown multifocal atrial rhythm with varying degrees of AV block with bout of sustained atrial flutter with varying of responses on multiple occasions as low as the 30s and rates up to 120. BLOOD WORK: Admission blood work showed a hemoglobin of 14, normal white blood cell count and platelet count. There has been no change in the past 24 hours. Chemistry confirmed electrolyte balance with BUN 24, creatinine 1.3, but has developed a degree of hypokalemia with his marked diuresis. BUN this morning 24, creatinine 1.2. Serum magnesium level was normal. Ultra-sensitive TSH was normal. Liver function studies were not performed. Serial CPKs were normal, with normal MB fractions. Serial Troponin I levels have been fairly consistent, measuring 0.41, 0.38 and 0.32. Pro-BNP level yesterday measured 15,318. ECHOCARDIOGRAM: Study performed earlier today was reviewed independently. Please see my official separate report. This shows at least mildly dilated and hypertrophied left ventricle with septal wall motion abnormality believed to be related to right ventricular pressure overload and moderate impairment of global resting systolic function with ejection fraction 40-45%. Left atrium was at least mildly dilated with impairment of left ventricular (LV) diastolic function, with current estimated mean left atrial pressure of 14 mmHg. He had at least mildly dilated right heart chambers with moderate pulmonary hypertension. Dilated inferior vena cava in keeping with at least a mildly elevated central venous pressure, moderately dilated aortic root of 5.2 cm, with subtle aortic sclerosis, but no stenosis, at least mild-moderate insufficiency. Subtle posterior pericardial effusion. IMPRESSION/PLAN: 1. Heart failure (systolic and diastolic/acute on chronic): Left ventricular dysfunction, believed to be related to multiple factors including his advanced age, longstanding hypertension and weight problem, as well as history of obstructive sleep apnea. Presented with obvious clinical symptoms and signs of decompensated failure (biventricular) that have responded well to diuretic therapy. In light of his marked diuresis and hypokalemia, his IV Lasix will be at least temporary placed on hold. He will maintain a modest salt and fluid intake restriction. We plan to consult the cardiac rehabilitation program for congestive heart failure (CHF) education and gradual ambulation. In light of his left ventricular dysfunction, our plan is to replace his enalapril with Entresto, but he will have to be off angiotensin-converting enzyme (JOSE) inhibition for least 24-48 hours. In the interim, I have placed him on isosorbide dinitrate and hydralazine. I have also started at least low-dose spirolactone. In light of his conduction tissue disease and bradyarrhythmia, we would withhold the use of carvedilol until permanent pacemaker was implanted. We intend to monitor his fluid status and renal function closely with you. 2. Tachy-regulo syndrome/paroxysmal atrial flutter: Remarkably unaware of his heart action. Has evidence of diffuse conduction tissue disease involving his sinus as well as his AV node. His arrhythmias may well have contributed to his decompensation. In light of his intermittent high-grade AV block, paroxysmal atrial flutter and rapid ventricular responses, we have recommended implantation of permanent dual-chamber pacemaker to allow us to safely administer antiarrhythmic medication, amiodarone. In light of his recent hematuria and renal tract infection, we would hold his systemic anticoagulation. I have discussed the indication, procedure and potential risks of permanent pacemaker implant with the patient and his , who appear to understand and agree. This will be arranged for tomorrow morning under monitored local anesthesia. 3. AV block (unspecified): Please see assessment #2. 4. Abnormal EKG: Findings in keeping with his body habitus and chronic hypertension. His echocardiogram does not show definite evidence of prior infarction. His septal wall motion abnormality is believed to be related to a right ventricular pressure overload. With his multiple coronary risk factors and CT scan evidence of coronary atherosclerosis, it may be prudent to consider followup pharmacological stress heart scan as an outpatient. We hope to introduce a beta-isaac, carvedilol, in light of his left ventricular dysfunction and blood pressure, postoperatively. As mentioned, his enalapril we plan to replace with Entresto once he has been off JOSE inhibition for 48 hours. The time being, he has been placed on isosorbide dinitrate 30 mg three times a day. Remains on a low-dose aspirin antiplatelet therapy. 5. Hypertensive heart disease (benign with heart failure): Decompensated failure, primarily believed to be related to his longstanding hypertension. Has responded well to diuretic therapy. Admission blood pressure was believed to be related to his fluid overload and has responded well to diuresis. I am cautiously optimistic his blood pressure will continue to be controlled with combination isosorbide dinitrate and hydralazine temporarily until we starts Entresto and carvedilol. His Cardura has been replaced with Flomax. Diuretic therapy will be temporarily placed on hold until his electrolytes are in balance. His renal function has remained stable despite his marked diuresis. We will continue to monitor his blood pressure carefully with you and make adjustments as necessary. 6. Aortic valve disorder (nonrheumatic): Subtle degenerative change of his aortic valvular apparatus, but his insufficiency is believed to be on the basis of his moderately dilated aortic root. The latter, I suspect, is a reflection of his chronic hypertension as well as atherosclerosis. No symptoms or signs of endocarditis. 7. Thoracic aortic aneurysm (benign without rupture): Prominently dilated aortic root and at least mildly dilated proximal ascending aorta, as discussed in assessment #6. Briggs management would be optimal blood pressure control and we are confident we will be able to perform this, including a beta-isaac as a part of his regimen. At his advanced age, aortic vascular surgery would be extremely high risk. 8. Obstructive sleep apnea: Previously treated with C-PAP therapy and followed by pulmonary medicine. I suspect this has contributed to his pulmonary hypertension and right heart failure. We will try to evaluate this further and encourage compliance with pressure therapy. We will plan on continuing to follow this follow closely with you and appreciate the opportunity to participate in his care. Best regards. DAHLIA
--- NOTE | 2018-10-25 11:45 | IPNPDOC ---
Text Note Date of Service The patient was seen on 10/25/18. NOTE Subjective: Patient seen and examined at bedside. Patient has no new medical complaints this morning. Objective: VITAL SIGNS: See below GENERAL APPEARANCE: NAD, lying comfortably in bed, elderly HEENT: NC/AT, EOMI, PERRL, nasal cannula in place CARDIOVASCULAR: +S1S2, irregular LUNGS: bibasilar crackles ABDOMEN: soft, NT, +BS EXTREMITIES: trace peripheral edema LABORATORY DATA: See below. MICROBIOLOGY: Please see below. ASSESSMENT: 83 yo male for decompensated heart failure, with PMHx HTN, prostate CA. #acute hypoxic respiratory failure - saturating well on room air now #CHF - echo shows systolic and diastolic dysfunction - I/O's, daily weight #bradycardia/pauses - plan for PPM today #CAP - check SCx - respiratory panel WNL - IS/acapella #HTN - continue home meds - hydralazine, ACEI #ELADIA - CPAP #remote hx prostate CA s/p seeding #gout #DVT prophylaxis - heparin SC Dispo: cardiology f/u, PT eval VS,Fishbone, I+O VS, Fishbone, I+O Laboratory Tests 10/25/18 05:33 Calcium Level 8.8 Vital Signs Date Time Temp Pulse Resp B/P (MAP) Pulse Ox O2 Delivery O2 Flow Rate FiO2 10/25/18 09:06 66 131/69 10/25/18 08:00 97.1 16 93 10/24/18 11:31 3 10/22/18 12:15 Nasal Cannula I&O- Last 24 Hours up to 6 AM 10/25/18 06:00 Intake Total 1365 ml Output Total 800 ml Balance 565 ml JONES MOREJON MD Oct 25, 2018 10:47
[2018-10-25 12:00] VITALS: BP 158/88
--- NOTE | 2018-10-25 12:22 | REP ---
At x-ray: Two views. History: Post pacemaker implant. Follow up CHF. Comparison study: October 24, 2018. Findings: EKG electrodes are seen. A dual lead pacemaker is noted in the right heart via the left side. Moderate cardiomegaly is again observed. There is no evidence of pneumothorax. There is blunting of both posterior pleural angles on the lateral radiograph consistent with small bilateral effusions. No bony abnormality is appreciated. Impression: Pacemaker in place. Moderate to marked cardiomegaly. Small bilateral pleural effusions. Electronically Signed by Reynaldo South MD 10/25/2018 09:28 A
[2018-10-25 16:00] VITALS: BP 160/90
[2018-10-25 20:00] VITALS: BP 147/86
[2018-10-25] MEDS: ENTRESTO 49-51MG TABLET (SACUBITRIL/VALSARTAN) PO SCH (21:20)
[2018-10-25] MEDS: TAMSULOSIN 0.4 MG CAP PO SCH (21:21)
[2018-10-26] VITALS: BP 134/81
[2018-10-26 04:00] VITALS: BP 140/74
[2018-10-26] MEDS: SLF 3 ML SYR IV SCH ×3 (05:42→22:19)
[2018-10-26 06:17] LABS: BLOOD UREA NITROGEN 20 MG/DL (7-18); CALCIUM LEVEL 8.5 MG/DL (8.8-10.2); CARBON DIOXIDE LEVEL 25 MEQ/L (21-32); CHLORIDE LEVEL 105 MEQ/L (98-107); CREATININE FOR GFR 0.99 MG/DL (0.70-1.30); GLOMERULAR FILTRATION RATE > 60.0 (>35); GLUCOSE, FASTING 116 MG/DL (70-100); POTASSIUM SERUM 3.7 MEQ/L (3.5-5.1); SODIUM LEVEL 139 MEQ/L (136-145)
[2018-10-26] MEDS: AMIODARONE 200 MG TAB (PACERONE) PO SCH ×4 (08:08→22:19)
[2018-10-26] MEDS: ALLOPURINOL 300 MG TAB PO SCH (08:08)
[2018-10-26] MEDS: ENTRESTO 49-51MG TABLET (SACUBITRIL/VALSARTAN) PO SCH ×2 (08:08→22:19)
[2018-10-26] MEDS: CYANOCOBALAMIN 500 MCG TAB PO SCH (08:09)
[2018-10-26] MEDS: ASPIRIN 81 MG ENTERIC TAB PO SCH (08:09)
[2018-10-26] MEDS: CARVedilol 6.25 MG TAB PO SCH ×2 (08:10→22:20)
[2018-10-26] MEDS: SPIRONOLACTONE 12.5MG PER 1/2 TABLET PO SCH (08:10)
[2018-10-26] MEDS: TOLTERODINE TARTRATE 2 MG LA CAP (DETROL LA) PO SCH (08:10)
[2018-10-26] MEDS: TORSEMIDE 10 MG TABLET PO SCH (08:10)
[2018-10-26 12:00] VITALS: BP 133/74
[2018-10-26 16:00] VITALS: BP 135/71
--- NOTE | 2018-10-26 17:32 | IPNPDOC ---
Text Note Date of Service The patient was seen on 10/26/18. NOTE Subjective: Patient seen and examined at bedside. Feels well with morning. Family at bedside. Patient has no new medical complaints. Objective: VITAL SIGNS: See below GENERAL APPEARANCE: Lying comfortably in bed, visiting with family HEENT: NC/AT, EOMI, PERRL, nasal cannula in place CARDIOVASCULAR: +S1S2, irregularly irregular rate and rhythm LUNGS: bibasilar crackles, otherwise clearly in upper lung lazar and moving air well ABDOMEN: soft, NT, +BS EXTREMITIES: trace peripheral edema LABORATORY DATA: See below. MICROBIOLOGY: Please see below. ASSESSMENT: 83 yo man for decompensated systolic and diastolic, tachybrady syndrome, ELADIA, HTN who was admitted in decompensated heart failure and has been undergoing diuresis, recently transitioned from ACEi to entresto and started on low dose aldactone, now s/p pacemaker placement for his conduction disease with plan for cardiac rehab in the future. #CHF - echo shows systolic and diastolic dysfunction - I/O's, daily weight - Torsemide 10 QD - Entresto 49-51 QD - Aldactone 12.5 QD - Appreciate cardiology recs #tachy/regulo syndrome -s/p PPM -amio 200 TID #Hypoxemia: resolved - with improving volume status #HTN - hydralazine 25 TID - Isordil 20 TID #ELADIA - CPAP #remote hx prostate CA s/p seeding #gout #DVT prophylaxis - heparin SC Cleared by PT Dispo: cardiology f/u VS,Fishbone, I+O VS, Fishbone, I+O Laboratory Tests 10/26/18 05:34 Calcium Level 8.5 L Vital Signs Date Time Temp Pulse Resp B/P (MAP) Pulse Ox O2 Delivery O2 Flow Rate FiO2 10/26/18 16:00 97.4 68 20 135/71 (92) 96 10/24/18 11:31 3 10/22/18 12:15 Nasal Cannula I&O- Last 24 Hours up to 6 AM 10/26/18 06:00 Intake Total 1330 ml Output Total 2300 ml Balance -970 ml SUNG ALFARO MD Oct 26, 2018 17:32
--- NOTE | 2018-10-26 18:02 | IPN ---
DATE: 10/26/2018 CARDIOLOGY PROGRESS NOTE SUBJECTIVE: At this point, he no longer has any pacemaker incisional discomfort. Has been up ambulating in the [place] and even climbed a flight of stairs with dramatic improvement in his effort dyspnea. No further lightheadedness or faintness. Appears to be tolerating his combination medical therapy without adverse effect. OBJECTIVE: A pleasant, elderly male, mildly overweight, lying comfortably with the head of bed elevated 30 degrees. No pallor or cyanosis. Heart rate 70 beats per minute and mostly regular, blood pressure 138/78 supine, 132/80 sitting with legs dependent, standing blood pressure 134/72. Respiratory rate 18, oxygen saturation 96% on room air. Afebrile. Current weight 211.6 pounds. Off his diuretic therapy. His intake and output have been even the past several days, but we resumed torsemide oral diuretic therapy earlier today with negative fluid balance. Normal oral moisture. No central cyanosis. Trachea midline. Neck veins approximately 3-4 cm above the sternal angle. Slightly increased anteroposterior chest diameter with fair air entry over both lung lazar with no current inspiratory crepitations. His left subclavian pacemaker incision appears to be healing well. The dressing was changed. Has no current lower extremity pitting edema at this time. desk monitor: This shows appropriate dual-chamber pacer function with atrial sensing and pacing and mostly consistent ventricular pacing. Rare spontaneous ventricular ectopic activity. PA and left lateral chest x-ray: Study performed 10/25/2018 was reviewed independently and shows ongoing obvious cardiomegaly with unfolded thoracic aorta. Pulmonary vasculature appears to have normalized with reduction in interstitial edema. Still has a small left-sided pleural effusion. His pacing leads appear stable in position with pulse generator left subclavian region. EKG: Tracing taken yesterday shows appropriate atrial pacing and capture as well as atrial sensing of spontaneous atrial activity. Consistent ventricular pacing with leftward axis in left bundle block (LBB) configuration, in keeping with right ventricular (RV) apical stimulation. This appearance was not changed from October 23. LABORATORY DATA: Chemistry today confirms electrolyte balance with BUN 20, creatinine 0.99, fasting glucose was 116. IMPRESSION/PLAN: 1. Heart failure (systolic and diastolic/acute on chronic): Dramatic improvement in symptoms and resolution of dependent edema with improved air entry and only a small persistent left pleural effusion. We have switched his enalapril and hydralazine after 48 hours to Entresto 49/51 one tablet twice a day, and so far he is tolerating this well without hypotension and improved renal function. We have resumed diuretic therapy using torsemide, primarily because of improved gastrointestinal (GI) absorption. Discharge medications will include carvedilol, Entresto, and torsemide with low-dose spirolactone from the failure standpoint. 2. 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 His last bout of atrial fibrillation was October 24. Complete pacemaker analysis was performed today, showing excellent intracardiac electrograms and pacing thresholds with ample battery voltage. 3. Atrioventricular (V) block (unspecified): Please see assessment #2. 4. Abnormal EKG: Stable QRS complexes that are paced. No evolutionary repolarization changes. As previously mentioned, we would suggest a pharmacological stress heart scan as an outpatient. Remains on protective combination carvedilol, Entresto, and low-dose aspirin. (We have not introduced oral anticoagulant therapy, hoping that his amiodarone will preserve a sustained organized atrial mechanism.) 5. Hypertensive heart disease (benign with heart failure): Appears compensated. 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 With his rate controlled and his current combination medical therapy, we are cautiously optimistic that he have a followup echocardiogram performed 4-6 weeks from now will show significant improvement. As mentioned, on his current medication his renal function has normalized. 6. Aortic valve disorder (non-rheumatic): Has no current audible murmur. Echocardiogram showed insufficiency, at least partially related to his moderately dilated aortic root. 7. Thoracic aortic aneurysm (benign without rupture): Prominently dilated aortic root that we will monitor, hoping his current combination antihypertensive therapy will prevent further increase in size. 8. Obstructive sleep apnea: As previously mentioned, believed to be contributing to his significant pulmonary hypertension and right heart failure. Appears to be willing to comply with this therapy at the time of his discharge. I am cautiously optimistic that if he continues to tolerate his medication and his renal function remains stable, that we will be able to discharge him tomorrow. [facility]
--- NOTE | 2018-10-26 18:20 | ECGEPIP ---
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
[2018-10-26 20:00] VITALS: BP 151/79
[2018-10-26] MEDS: TAMSULOSIN 0.4 MG CAP PO SCH (22:19)
[2018-10-27] VITALS: BP 131/76
[2018-10-27 04:00] VITALS: BP 128/81
[2018-10-27] MEDS: SLF 3 ML SYR IV SCH (06:00)
[2018-10-27 06:11] LABS: BLOOD UREA NITROGEN 23 MG/DL (7-18); CALCIUM LEVEL 8.7 MG/DL (8.8-10.2); CARBON DIOXIDE LEVEL 27 MEQ/L (21-32); CHLORIDE LEVEL 103 MEQ/L (98-107); CREATININE FOR GFR 1.09 MG/DL (0.70-1.30); GLOMERULAR FILTRATION RATE > 60.0 (>35); GLUCOSE, FASTING 123 MG/DL (70-100); POTASSIUM SERUM 3.6 MEQ/L (3.5-5.1); SODIUM LEVEL 138 MEQ/L (136-145)
[2018-10-27 08:00] VITALS: BP 130/75
[2018-10-27] MEDS: TOLTERODINE TARTRATE 2 MG LA CAP (DETROL LA) PO SCH (09:34)
[2018-10-27] MEDS: CYANOCOBALAMIN 500 MCG TAB PO SCH (09:34)
[2018-10-27] MEDS: ALLOPURINOL 300 MG TAB PO SCH (09:35)
[2018-10-27] MEDS: ASPIRIN 81 MG ENTERIC TAB PO SCH (09:35)
[2018-10-27] MEDS: ENTRESTO 49-51MG TABLET (SACUBITRIL/VALSARTAN) PO SCH (09:35)
[2018-10-27] MEDS: AMIODARONE 200 MG TAB (PACERONE) PO SCH ×2 (09:35→12:43)
[2018-10-27] MEDS: TORSEMIDE 10 MG TABLET PO SCH (09:36)
[2018-10-27] MEDS: SPIRONOLACTONE 12.5MG PER 1/2 TABLET PO SCH (09:36)
[2018-10-27 09:37] VITALS: BP 130/75
[2018-10-27] MEDS: CARVedilol 6.25 MG TAB PO SCH (09:37)
[2018-10-27] MEDS ORDERED: POTASSIUM CHLORIDE 10 MEQ SR TABLET PO SCH (10:00)
[2018-10-27] MEDS ORDERED: KLOR10TA76 PO (10:49)
[2018-10-27] MEDS ORDERED: ENTR1TAB7 PO (10:49)
[2018-10-27] MEDS ORDERED: AMIO200T PO (10:49)
[2018-10-27] MEDS ORDERED: ALDA25TA2 PO (10:49)
[2018-10-27] MEDS ORDERED: FLOM0.4C39 PO (10:49)
[2018-10-27] MEDS ORDERED: CARV6.25 PO (10:49)
[2018-10-27] MEDS ORDERED: TORS10TA3 PO (10:49)
[2018-10-27] MEDS ORDERED: POTA10CA32 PO (10:53)
[2018-10-27] MEDS ORDERED: AMIO200T37 PO (11:04)
[2018-10-27] MEDS ORDERED: FURO20TA2 PO (11:14)
== END 2018-10-27 15:33 | disposition home or self-care (01) | DRG 242 ==
LOC: M ED 10:07 → M ED INP 14:23 → M ICU 15:17 → M PCU 10-24 16:15
PROVIDERS: ADMIT Internal Medicine; ATTEND Internal Medicine
PROC: 02HK0JZ Insertion of Pacemaker Lead into Right Ventricle, Open Approach (ICD-10-PCS; 2018-10-24)
PROC: 02H60JZ Insertion of Pacemaker Lead into Right Atrium, Open Approach (ICD-10-PCS; 2018-10-24)
PROC: 0JH606Z Insertion of Pacemaker, Dual Chamber into Chest Subcutaneous Tissue and Fascia, Open Approach (ICD-10-PCS; principal; 2018-10-24 09:30)
DX: I49.5 Sick sinus syndrome (principal); J18.9 Pneumonia, unspecified organism; I50.43 Acute on chronic combined systolic (congestive) and diastolic (congestive) heart failure; J96.01 Acute respiratory failure with hypoxia; I48.2 Chronic atrial fibrillation; I11.0 Hypertensive heart disease with heart failure; I35.0 Nonrheumatic aortic (valve) stenosis; G47.33 Obstructive sleep apnea (adult) (pediatric); I71.2 Thoracic aortic aneurysm, without rupture; Z85.46 Personal history of malignant neoplasm of prostate; Z79.899 Other long term (current) drug therapy; Z79.82 Long term (current) use of aspirin

== ENCOUNTER → 2018-12-16 | Outpatient (RCR) | payer MEDICARE ==
--- NOTE | 2018-12-09 11:11 | CARECAPL ---
Assessment Account #s: Initial Assessment General Diagnoses: Stent, CHF (EF 40%) Date of event: Nov 24, 2018 Physician: Joe Ball Allergies: Coded Allergies: No Known Allergies (Unverified , 10/22/18) Date Entered Program: Dec 09, 2018 Risk strat for cardiac event: High Exercise Date: Dec 09, 2018 Assessment: Initial Assessment Stages of change: Preperation Exercise Prescription Plan to provide a monitored exercise program to build strength and endurance and to educate about cardiac disease, lifestyle changes, and further prevention Modalities initiated: Treadmill (will add), Cardio-Strider (possibly add), Nustep (will add), Arm Aerometer (will add), Dumbells (will add), Recumbent Bike (will add) Frequency: 2 Duration (Minutes) 30 - 60 minutes total exercise a day. 15 - 20 work intervals in minutes. PRN rest intervals in minutes. Functional Capacity Goal Sustained Metabolic Equivalent of a task (MET) goal of 2.5-3.5 for 15-20 minutes. Intensity: 3-Moderate Progression (METS) Increase by: .5 METS every: 2-3 sessions Angina with ex: No Target Heart Rate R+35-40 betablocker therapy Weight (pounds): 2 Reps: 6-8 Hypertension: Yes Resting 152/90 Meds see below Medications Scheduled Allopurinol (Zyloprim), 300 MG PO DAILY, (Reported) Amiodarone HCl (Amiodarone Hydrochloride), 200 MG PO BID Aspirin (Ecotrin), 81 MG PO DAILY, (Reported) Atorvastatin Calcium (Atorvastatin Calcium), 1 TAB PO DAILY, (Reported) Calcium Carbonate/Vitamin D3 (Calcium 600-Vit D3 400 Tablet), 1 TAB PO DAILY, (Reported) Carvedilol (Carvedilol), 6.25 MG PO BID Clopidogrel Bisulfate (Plavix), 1 TAB PO DAILY, (Reported) Cyanocobalamin (Vitamin B-12) (Vitamin B12), 2,500 MCG PO DAILY, (Reported) Furosemide (Furosemide), 20 MG PO DAILY Furosemide (Lasix), 20 MG PO DAILY, (Reported) Potassium Chloride (Potassium Chloride), 10 MEQ PO BID Sacubitril/Valsartan (Entresto 49 mg-51 mg Tablet), 1 TAB PO BID Spironolactone (Aldactone), 12.5 MG PO DAILY Tamsulosin HCl (Flomax), 0.4 MG PO QHS Tolterodine Tartrate (Tolterodine Tartrate ER), 2 MG PO DAILY, (Reported) Scheduled PRN Acetaminophen (Tylenol Arthritis), 650 MG PO Q8H PRN for PAIN, (Reported) Discontinued Medications Doxazosin Mesylate (Doxazosin Mesylate), 8 MG PO QHS, (Reported) Discontinued Reason: Pt states not taking Target Goals Individual exercise Rx (1) BP 140/90 or 130/80 if DM or CKD (1) Aerobic active 30+min 5 days per week (1) Nutrition Date: Dec 09, 2018 Assessment: Initial Assessment Stages of change: Preperation Lipid- med/supplement Avorastatin Diabetes Diabetes: No Weight Management Weight (lbs): 200 Height (inches): 69 BMI: 29.5 Weight goal: 180 Special Diet: regular Vitamin/Supplements: Vitamin B, Vitamin C, Vitamin D Alcohol: special Alcohol Type: beer Alcohol Amount: 1 Diet Access Tool: Rate your plate Score: 38 Education Eating Healthy (spoke in depth about low Na diet in relationship to CHF) Target goal LDL-C<100 if triglycerides are >200 Non-HDL-C should be <130 (1) LDL-C<70 for high risk patients (4) HbA1c<7% (1) BMI<25 Waist cir<40in M/<35in F (1) Education Date: Dec 09, 2018 Assessment: Initial Assessment Learning Barriers: ready, learn Knowledge Test Score: 3 Stages of change: Preperation Family Support: Yes Tobacco use: No Target Goals Complete cessation of tobacco use (1). Psychosocial Date: Dec 09, 2018 Assessment: Initial Assessment Psych Test (Initial/Discharge) Tool Used: Other (PHQ-9) Score: 0 Stages of change: Preperation Intervention Physician Consult: No Physician Referral: No Target Goal Assess presence or absence of depression using a valid screening tool (1). Maximize coping skills (2). Positive support system (2). Patient/Program Goal Preventative Medication: Yes Aspirin, Yes Clopidogrel, Yes Beta blockade, Yes Statin/OTR lipid Lowering Fall Risk Assess: No Assisstive Device: other (tug 8 sec) Provider Assessment Provider Assessment: Proceed with rehab Julissa Garza RN Dec 09, 2018 11:11
[~2018-12-16] MED LIST changes: +ALDA25TA2 PO; +AMIO200T PO; +AMIO200T37 PO; +ATOR1TAB21 PO; +B-122500 PO; +CALC1TAB74 PO; +CARV6.25 PO; +DOXA1TAB40 PO; +ECOT81TA5 PO; +ENTR1TAB7 PO; +FLOM0.4C39 PO; +FURO20TA2 PO; +HYDR-3910 PO; +KLOR10TA76 PO; +LASI20TA3 PO; +PLAV1TAB2 PO; +POTA10CA32 PO; +TOLT2CAP4 PO; +TORS10TA3 PO; +TYLE650T35 PO; +ZYLO300T6 PO
== END ==
LOC: M CR 12-09 08:30
PROVIDERS: ATTEND Internal Medicine Cardiovascular Disease
DX: Z98.61 Coronary angioplasty status (principal)

== ENCOUNTER → 2019-01-06 | Outpatient (CLI) | payer MEDICARE ==
[2019-01-06 10:36] LABS: BASO # 0.1 10^3/uL (0.0-0.2); BASO % 0.8 % (0.0-1.0); EOS # 0.2 10^3/uL (0.0-0.5); EOS % 3.5 % (0.0-3.0); HEMATOCRIT 45.5 % (42.0-52.0); HEMOGLOBIN 14.4 g/dl (13.5-17.5); LYMPH # 1.4 10^3/uL (1.5-5.0); MEAN CORPUSCULAR HEMOGLOBIN 31.9 pg (27.0-33.0); MEAN CORPUSCULAR HGB CONC 31.6 g/dl (32.0-36.5); MEAN CORPUSCULAR VOLUME 100.7 fl (80.0-96.0); MONO # 0.4 10^3/uL (0.0-0.8); MONO % 5.8 % (0.0-5.0); NEUTROPHILS # 4.4 10^3/uL (1.5-8.5); NEUTROPHILS % 67.4 % (36.0-66.0); PLATELET COUNT, AUTOMATED 148 10^3/uL (150-450); RED BLOOD COUNT 4.52 10^6/uL (4.30-6.10); WHITE BLOOD COUNT 6.6 10^3/uL (4.0-10.0)
[2019-01-06 11:26] LABS: ALBUMIN 3.3 GM/DL (3.2-5.2); BILIRUBIN,TOTAL 1.3 MG/DL (0.2-1.0); CALCIUM LEVEL 8.9 MG/DL (8.8-10.2); CREATININE FOR GFR 1.99 MG/DL (0.70-1.30); GLOMERULAR FILTRATION RATE 34.3 (>35); THYROID STIMULATING HORMONE 12.4 uIU/ML (0.358-3.740); TOTAL PROTEIN 6.4 GM/DL (6.4-8.2)
--- NOTE | 2019-01-06 12:59 | REP ---
Two-view chest: 01/06/2019. Indication: Cough. Comparison: 10/25/2018. Findings: The lungs are essentially clear. The previous pleural effusions have resolved. Thoracic spine tissue is noted. Left-sided dual lead pacer is present with the leads intact. Mild cardiomegaly is present. The right upper lobe opacity is better demonstrated on the most recent CT evaluation. Impression: No acute cardiopulmonary process. Electronically Signed by Bright Potter DO 01/06/2019 12:51 P
== END ==
LOC: M LAB 09:55
PROVIDERS: ATTEND Internal Medicine Cardiovascular Disease
DX: I48.0 Paroxysmal atrial fibrillation (principal); I08.0 Rheumatic disorders of both mitral and aortic valves; I50.42 Chronic combined systolic (congestive) and diastolic (congestive) heart failure; I47.1 Supraventricular tachycardia; R94.31 Abnormal electrocardiogram [ECG] [EKG]; I11.0 Hypertensive heart disease with heart failure; I48.92 Unspecified atrial flutter; R05 Cough

== ENCOUNTER 2019-01-10 14:20 | Outpatient (RCR) | payer MEDICARE ==
--- NOTE | 2018-12-27 14:51 | CARECAPL ---
Assessment Account #s: Re-Assessment I General Diagnoses: Stent, CHF (EF 40%) Date of event: Nov 24, 2018 Physician: Joe Ball Allergies: Coded Allergies: No Known Allergies (Unverified , 10/22/18) Date Entered Program: Dec 09, 2018 Risk strat for cardiac event: High Exercise Date: Dec 27, 2018 Assessment: Re-Assessment I Exercise Prescription Modalities initiated: Treadmill (1.5/1.5 MTS 2.35 RPE 4 10 MINUTES), Nustep (L3 10 MINUTS MTS 3.6 RPE 3.5), Arm Aerometer (2.5 8 MINUTES MTS 2.4 RPE 3), Du mbells, Recumbent Bike (R1 7 MINUTES MTS 2.6 RPE 3.5) Duration (Minutes) 30 - 60 minutes total exercise a day. 15 - 20 work intervals in minutes. PRN rest intervals in minutes. Functional Capacity Goal Sustained Metabolic Equivalent of a task (MET) goal of 2.5-3.5 for 15-20 minutes. Progression (METS) Increase by: METS every: sessions Angina with ex: No Weight (pounds): 3 Reps: 8-12 Hypertension: Yes Hypertension controlled with: Medication Resting 124/80 Peak Exercise BP 160/86 Medications Scheduled Allopurinol (Zyloprim), 300 MG PO DAILY, (Reported) Amiodarone HCl (Amiodarone Hydrochloride), 200 MG PO BID Aspirin (Ecotrin), 81 MG PO DAILY, (Reported) Atorvastatin Calcium (Atorvastatin Calcium), 1 TAB PO DAILY, (Reported) Calcium Carbonate/Vitamin D3 (Calcium 600-Vit D3 400 Tablet), 1 TAB PO DAILY, (Reported) Carvedilol (Carvedilol), 6.25 MG PO BID Clopidogrel Bisulfate (Plavix), 1 TAB PO DAILY, (Reported) Cyanocobalamin (Vitamin B-12) (Vitamin B12), 2,500 MCG PO DAILY, (Reported) Furosemide (Furosemide), 20 MG PO DAILY Furosemide (Lasix), 20 MG PO DAILY, (Reported) Potassium Chloride (Potassium Chloride), 10 MEQ PO BID Sacubitril/Valsartan (Entresto 49 mg-51 mg Tablet), 1 TAB PO BID Tolterodine Tartrate (Tolterodine Tartrate ER), 2 MG PO DAILY, (Reported) Scheduled PRN Acetaminophen (Tylenol Arthritis), 650 MG PO Q8H PRN for PAIN, (Reported) Discontinued Medications Spironolactone (Aldactone), 12.5 MG PO DAILY Discontinued Reason: PCP discontinued med Tamsulosin HCl (Flomax), 0.4 MG PO QHS Discontinued Reason: PCP discontinued med Current BP 134/78 AFTER EXERCISE Med Change: No Education Goals Met: No (PROGRESSING TOWARD GOALS) Target Goals Individual exercise Rx (1) BP 140/90 or 130/80 if DM or CKD (1) Aerobic active 30+min 5 days per week (1) Nutrition Date: Dec 27, 2018 Assessment: Re-Assessment I Stages of change: Preperation Diabetes Diabetes: No Current Weight (pounds): 200.6 Weight Goal 175 Intervention Dietary Goals SMALLER PORTIONS BETTER CHOICES Diet Class: Yes (SAW 12/23/18) Target goal LDL-C<100 if triglycerides are >200 Non-HDL-C should be <130 (1) LDL-C<70 for high risk patients (4) HbA1c<7% (1) BMI<25 Waist cir<40in M/<35in F (1) Education Date: Dec 27, 2018 Assessment: Re-Assessment I Intervention Referral to smoking cessation: No Individual education and couns: No Tobacco Adjunct: No Education class schedule given: Yes Education: CAD (WRITTEN MATERIAL GIVEN WITH DIAGRAMS ABOUT RISK FACTORS), Risk factors (SPOKE TO PT ABOUT SMOKING, ABNORMAL LIPID PANEL, OVERWEIGHT, LACK OF EXERCISE), med compliance (ACKNOWLEDGED IMPORTANCE OF TAKING MEDICATIONS) Education Goals Met: No (PROGRESSING TOWARD GOALS) Target Goals Complete cessation of tobacco use (1). Psychosocial Date: Dec 27, 2018 Assessment: Re-Assessment I Stress Management Class: Yes Uses Stress Management Skills: Yes Education Education: Coping Techniques (ACK DOING THINGS THAT YOU LIKE AND PUTTING YOUR HEALTH FIRST), S/S depression (S/S SUCH LACK OF INTEREST, EXCESSIVE TIREDNESS, LACK OF APPETITE), Relaxation Techniques (BREATHING EXERCISES, ) Education Goals Met: No (PROGRESSING TOWARD GOALS) Target Goal Assess presence or absence of depression using a valid screening tool (1). Maximize coping skills (2). Positive support system (2). Provider Assessment Session Number: 4 Provider Assessment: No changes (EARLY IN PROGRAM, HAS GOOD ATTITUDE TOWARD EXERCISE AND EDUCATION) Julissa Garza RN Dec 27, 2018 14:51
== END 2019-01-15 ==
LOC: M CR 14:20
PROVIDERS: ATTEND Internal Medicine Cardiovascular Disease
DX: Z51.89 Encounter for other specified aftercare (principal); Z98.61 Coronary angioplasty status

== ENCOUNTER 2019-01-31 16:01 | Outpatient (RCR) | payer MEDICARE ==
--- NOTE | 2019-01-19 13:21 | CARECAPL ---
Assessment Account #s: Re-Assessment II General Diagnoses: Stent, CHF (EF40%) Date of event: Nov 24, 2018 Physician: Joe Ball Allergies: Coded Allergies: No Known Allergies (Unverified , 10/22/18) Date Entered Program: Dec 09, 2018 Risk strat for cardiac event: High Exercise Date: Jan 19, 2019 Assessment: Re-Assessment II Stages of change: Contemplate Exercise Prescription Modalities initiated: Treadmill, Nustep (L3 MTS 2.7 RPE 3.5 12 MINUTES), Arm Aerometer (3.0 MTS 2.5 RPE 4 9 MINUTES), Dumbells, Recumbent Bike (R2 MTS 3.2 RPE 4 8 MINUTES) Duration (Minutes) 30 - 60 minutes total exercise a day. 15 - 20 work intervals in minutes. PRN rest intervals in minutes. Functional Capacity Goal Sustained Metabolic Equivalent of a task (MET) goal of for minutes. Progression (METS) Increase by: METS every: sessions Angina with ex: No Resistance Training: Yes Weight (pounds): 3 Reps: 6-8 Hypertension: Yes Hypertension controlled with: Medication Resting 132/72 Peak Exercise BP 140/90 Meds SEE BELOW Medications Scheduled Allopurinol (Zyloprim), 300 MG PO DAILY, (Reported) Amiodarone HCl (Amiodarone Hydrochloride), 200 MG PO BID Aspirin (Ecotrin), 81 MG PO DAILY, (Reported) Atorvastatin Calcium (Atorvastatin Calcium), 1 TAB PO DAILY, (Reported) Calcium Carbonate/Vitamin D3 (Calcium 600-Vit D3 400 Tablet), 1 TAB PO DAILY, (Reported) Carvedilol (Carvedilol), 6.25 MG PO BID Clopidogrel Bisulfate (Plavix), 1 TAB PO DAILY, (Reported) Cyanocobalamin (Vitamin B-12) (Vitamin B12), 2,500 MCG PO DAILY, (Reported) Furosemide (Furosemide), 20 MG PO DAILY Furosemide (Lasix), 20 MG PO DAILY, (Reported) Potassium Chloride (Potassium Chloride), 10 MEQ PO BID Sacubitril/Valsartan (Entresto 49 mg-51 mg Tablet), 1 TAB PO BID Tolterodine Tartrate (Tolterodine Tartrate ER), 2 MG PO DAILY, (Reported) Scheduled PRN Acetaminophen (Tylenol Arthritis), 650 MG PO Q8H PRN for PAIN, (Reported) Current BP 120/68 AFTER EXERCISE Med Change: No Intervention Home exercise: Type (WALKING,HAND WEIGHTS), Frequency (4-5 TIMES PER WEEK), Duration (30-60 MINUTES) Resistance Training: Yes Education Goals Met: Yes (SEE PRIOR itp FOR EDUCATION COMPLETED) Target Goals Individual exercise Rx (1) BP 140/90 or 130/80 if DM or CKD (1) Aerobic active 30+min 5 days per week (1) Nutrition Date: Jan 19, 2019 Assessment: Re-Assessment II Stages of change: Preperation Current Weight (pounds): 200.4 Intervention Professor In Family Studies Consult: Yes (SEEN 12/23/2018) Nurse/patient discussion: Yes Education Goals Met: Yes (MAKING GOOD CHOICES PER PT, HAS LOST 2-3 LBS) Target goal LDL-C<100 if triglycerides are >200 Non-HDL-C should be <130 (1) LDL-C<70 for high risk patients (4) HbA1c<7% (1) BMI<25 Waist cir<40in M/<35in F (1) Education Date: Jan 19, 2019 Assessment: Re-Assessment II Education Goals Met: Yes (SEE PRIOR ITP FOR EDUCATION COVERED) Target Goals Complete cessation of tobacco use (1). Psychosocial Date: Jan 19, 2019 Assessment: Re-Assessment II Stress Management Class: Yes Uses Stress Management Skills: Yes Education Goals Met: Yes (GOOD ATTITUDE ABOUT EXERCISE AND HIS HEALTH IN GENERAL) Target Goal Assess presence or absence of depression using a valid screening tool (1). Maximize coping skills (2). Positive support system (2). Provider Assessment Session Number: 9 Provider Assessment: No changes Julissa Garza RN Jan 19, 2019 13:21
--- NOTE | 2019-02-07 15:19 | CARECAPL ---
Assessment Account #s: Re-Assessment II (REASSESSMENT III) General Diagnoses: Stent, CHF ((EF40%)) Date of event: Nov 24, 2018 Physician: Joe Ball Allergies: Coded Allergies: No Known Allergies (Unverified , 10/22/18) Date Entered Program: Dec 09, 2018 Risk strat for cardiac event: High Exercise Date: Feb 07, 2019 Assessment: Re-Assessment II (REASSESSMENT III) Stages of change: Preperation Exercise Prescription Plan TO EDUCATE AND BUILD STRENGTH AND ENDURANCE THROUGH MONITORED EXERCISE PROGRAM Modalities initiated: Nustep (METS=2.8/RPE=3.5), Arm Aerometer (METS=7.8/RPE=3.5), Dumbells (5#/RPE=3), Recumbent Bike (METS=3.7/RPE=4) Frequency: 3 Duration (Minutes) 30 - 60 minutes total exercise a day. 15 - 20 work intervals in minutes. PRN rest intervals in minutes. Functional Capacity Goal Sustained Metabolic Equivalent of a task (MET) goal of 4.0-5.0 for 15-20 minutes. Intensity: 3-Moderate Progression (METS) Increase by: 0.5 METS every: 5 sessions as tolerated Angina with ex: No Target Heart Rate REST + 35-40 BASED ON BETA RENATO THERAPY Resistance Training: Yes Weight (pounds): 5 Reps: 12-15 Hypertension: Yes Hypertension controlled with: Medication (CARVEDILOL) Resting 136/74 Peak Exercise BP 142/88 Medications Scheduled Allopurinol (Zyloprim), 300 MG PO DAILY, (Reported) Amiodarone HCl (Amiodarone Hydrochloride), 200 MG PO BID Aspirin (Ecotrin), 81 MG PO DAILY, (Reported) Atorvastatin Calcium (Atorvastatin Calcium), 1 TAB PO DAILY, (Reported) Calcium Carbonate/Vitamin D3 (Calcium 600-Vit D3 400 Tablet), 1 TAB PO DAILY, (Reported) Carvedilol (Carvedilol), 6.25 MG PO BID Clopidogrel Bisulfate (Plavix), 1 TAB PO DAILY, (Reported) Cyanocobalamin (Vitamin B-12) (Vitamin B12), 2,500 MCG PO DAILY, (Reported) Finasteride (Finasteride), 5 MG PO QPM, (Reported) Furosemide (Furosemide), 20 MG PO DAILY Furosemide (Lasix), 20 MG PO DAILY, (Reported) Potassium Chloride (Potassium Chloride), 10 MEQ PO BID Sacubitril/Valsartan (Entresto 49 mg-51 mg Tablet), 1 TAB PO BID Tolterodine Tartrate (Tolterodine Tartrate ER), 2 MG PO DAILY, (Reported) Scheduled PRN Acetaminophen (Tylenol Arthritis), 650 MG PO Q8H PRN for PAIN, (Reported) Current BP 130/80 Med Change: No Intervention Home exercise: Type (WALKING, HAND WEIGHTS), Frequency (3-5 DAYS PER WEEK), Duration (30-60 MINUTES) Resistance Training: Yes Education: Self pulse (SEE PRIOR ITP'S FOR EDUCATION, WILL CONTINUE TO REINFORCE WHILE IN PROGRAM) Education Goals Met: Yes (PROGRESSING TOWARD GOALS) Target Goals Individual exercise Rx (1) BP 140/90 or 130/80 if DM or CKD (1) Aerobic active 30+min 5 days per week (1) Nutrition Date: Feb 07, 2019 Assessment: Re-Assessment II (REASSESSMENT III) Stages of change: Preperation Lipid- med/supplement ATORVASTATIN Med Change: No Diabetes Diabetes: No Weight Management Weight (lbs): 200.3 Special Diet: low salt, low-fat Alcohol: none Current Weight (pounds): 200.3 Intervention Director Of Cath Lab Consult: No Nurse/patient discussion: Yes Dietary Goals TO MAKE HEART HEALTHY CHOICES AND TAKE SMALLER PORTIONS Diet Class: Yes (MET WITH VINYL INSTALLER (12/23/2018)) Referral to Diabetes education: No Referral to lipid clinic: No Referral to weight mangement p: No Education Eating Healthy Education Goals Met: Yes (PROGRESSING TOWARD GOALS) Target goal LDL-C<100 if triglycerides are >200 Non-HDL-C should be <130 (1) LDL-C<70 for high risk patients (4) HbA1c<7% (1) BMI<25 Waist cir<40in M/<35in F (1) Education Date: Feb 07, 2019 Assessment: Re-Assessment II (REASSESSMENT III) Learning Barriers: ready Stages of change: Preperation Family Support: Yes Tobacco use: No Tobacco Use Smokeless tobacco: No Intervention Referral to smoking cessation: No Individual education and couns: No Tobacco Adjunct: No Education class schedule given: No Attended education classes: No Education: tobacco triggers (SEE PRIOR ITP'S FOR EDUCATION, WILL CONTINUE TO REINFORCE WHILE IN PROGRAM) Education Goals Met: Yes (PROGRESSING TOWARD GOALS) Target Goals Complete cessation of tobacco use (1). Psychosocial Date: Feb 07, 2019 Assessment: Re-Assessment II (REASSESSMENT III) Stages of change: Preperation Intervention Physician Consult: No Physician Referral: No Med Change: No Stress Management Class: No Uses Stress Management Skills: Yes Education Education: Coping Techniques (DISCUSSED COPING TECHNIQUES SUCH TAKING TIME FOR SELF, EXERCISE, TALKING WITH FRIENDS AND FAMILY), S/S depression (REVEIWED S/S OF DEPRESSION SUCH WITHDRAWAL,LACK OF INTEREST,LACK OF APPETITE,SECLUSION), Relaxation Techniques (DISCUSSED WAYS TO RELAX,READING,MUSIC,EXERCISING) Education Goals Met: Yes (PROGRESSING TOWARD GOALS) Target Goal Assess presence or absence of depression using a valid screening tool (1). Maximize coping skills (2). Positive support system (2). Patient/Program Goal Preventative Medication: Yes Aspirin, Yes Clopidogrel, Yes Beta blockade, Yes Statin/OTR lipid Lowering Fall Risk Assess: Yes (NOT A FALL RISK) Provider Assessment Session Number: 13 Provider Assessment: Proceed with rehab (GOOD ATTITUDE TOWARDS EXERCISE AND EDUCATION) Mesfin Mckeon RN Feb 07, 2019 15:19
[2019-02-16] MEDS ORDERED: LEVO25TA5 (22:32)
== END 2019-02-15 ==
LOC: M CR 16:01
PROVIDERS: ATTEND Internal Medicine Cardiovascular Disease
DX: Z51.89 Encounter for other specified aftercare (principal); Z98.61 Coronary angioplasty status

== ENCOUNTER → 2019-01-31 | Outpatient (CLI) | payer MEDICARE ==
[~2019-01-31] MED LIST changes: +FINA5TAB2 PO
--- NOTE | 2019-01-31 13:38 | REP ---
URINARY TRACT SONOGRAPHY: HISTORY: Complex renal cyst. Comparison CT and ultrasound imaging of the kidneys is from February 2012. SONOGRAPHIC FINDINGS: Scanning at the level urinary bladder confirms the presence of emptying ureteral jets from both ureters on color Doppler interrogation. 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 This is on the right side. Renal cortical echogenicity pattern is slightly increased in the right kidney and normal in the left kidney. There is no evidence of hydronephrosis on either side. Left renal dimensions are 12.9 x 5.5 x 5.7 cm. There is a 3.2 x 2.2 x 2.1 cm simple cyst in the upper pole left kidney. At the mid pole level, the left kidney contains a 1.1 cm cyst. On the right there are also two cysts. At mid pole level, the right kidney contains a 3.9 x 3.6 x 3.5 cm anechoic simple cyst. Just adjacent to this, there is a 0.8 cm cyst in the right kidney. No mass lesion is observed. Right renal dimensions are 9.0 x 4.5 x 4.1 cm. The left kidney measures 12.9 x 5.5 x 5.7 cm. IMPRESSION: Bilateral renal cysts appear sonographically simple. Otherwise negative. Electronically Signed by Reynaldo South MD 01/31/2019 01:48 P
== END ==
LOC: M RAD 11:26
PROVIDERS: ATTEND Nurse Practitioner Family
DX: N28.1 Cyst of kidney, acquired (principal); R32 Unspecified urinary incontinence

== ENCOUNTER 2019-02-16 21:52 | Emergency (ER) | payer MEDICARE ==
[~2019-02-16] VITALS: Ht 177.8 cm; Wt 82.7 kg
[2019-02-16 22:09] LABS: BASO # 0.1 10^3/uL (0.0-0.2); BASO % 0.8 % (0.0-1.0); EOS # 0.3 10^3/uL (0.0-0.5); EOS % 4.2 % (0.0-3.0); HEMATOCRIT 45.8 % (42.0-52.0); HEMOGLOBIN 14.5 g/dl (13.5-17.5); LYMPH # 2.3 10^3/uL (1.5-5.0); MEAN CORPUSCULAR HEMOGLOBIN 31.7 pg (27.0-33.0); MEAN CORPUSCULAR HGB CONC 31.7 g/dl (32.0-36.5); MONO # 0.5 10^3/uL (0.0-0.8); MONO % 6.3 % (0.0-5.0); NEUTROPHILS # 4.3 10^3/uL (1.5-8.5); NEUTROPHILS % 57.6 % (36.0-66.0); PLATELET COUNT, AUTOMATED 164 10^3/uL (150-450); RED BLOOD COUNT 4.58 10^6/uL (4.30-6.10); WHITE BLOOD COUNT 7.4 10^3/uL (4.0-10.0)
[2019-02-16 22:23] LABS: INR 1.17; PROTHROMBIN TIME 14.6 SECONDS (11.8-14.0)
[2019-02-16] MEDS: NITROGLYCERIN 0.4 MG SUBL TABLET SL PRN (22:30)
[2019-02-16] MEDS ORDERED: LEVO25TA5 (22:32)
[2019-02-16 22:33] LABS: ALBUMIN 3.3 GM/DL (3.2-5.2); BILIRUBIN,DIRECT 0.3 MG/DL (0.0-0.2); CK-MB VALUE MASS 1.6 NG/ML (<3.6); MB/CK RELATIVE INDEX 4.1 (< OR =4); TOTAL PROTEIN 6.5 GM/DL (6.4-8.2); TROPONIN I 0.03 NG/ML (< 0.10)
[2019-02-17 00:39] VITALS: BP 132/79
[2019-02-17] MEDS: NITROGLYCERIN 0.4 MG SUBL TABLET SL PRN (00:39)
[2019-02-17] MEDS ORDERED: ONDANSETRON 4MG/2ML VIAL (J2405) IV ONE (01:45)
[2019-02-17] MEDS ORDERED: MORPHINE 2 MG/ML 1ML VIAL (J2270) IV PRN (01:45)
[2019-02-17 04:49] LABS: CK-MB VALUE MASS 1.5 NG/ML (<3.6); MB/CK RELATIVE INDEX 4.69 (< OR =4); TROPONIN I 0.05 NG/ML (< 0.10)
[2019-02-17] MEDS ORDERED: GI COCKTAIL 50ML BTL(HYOSCYAMINE/MAALOX/LIDOCAINE VISCOUS)(1:3:1) PO ONE (05:00)
[2019-02-17 05:30] VITALS: BP 137/81
[2019-02-17] MEDS ORDERED: PROT1TAB2 PO (05:34)
[2019-02-17] MEDS ORDERED: PANTOPRAZOLE 40MG TAB (PROTONIX) PO ONE (05:45)
--- NOTE | 2019-02-17 05:48 | ECGEPIP ---
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
--- NOTE | 2019-02-17 05:56 | ECGEPIP ---
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
--- NOTE | 2019-02-17 06:50 | REP ---
Clinical: Chest pain . Comparison: 01/06/2019 . Findings: The mediastinum and cardiac silhouette are stable. Pacemaker again noted. The lung lazar demonstrate chronic stable changes without acute consolidation, effusion, or pneumothorax. Skeletal structures are intact. Impression: Stable chronic-appearing changes. No focal consolidation. Electronically Signed by Hira Adamson MD 02/17/2019 06:42 A
== END 2019-02-17 05:52 | disposition home or self-care (01) ==
LOC: M ED 21:52
DX: R07.89 Other chest pain (principal); I10 Essential (primary) hypertension; E78.49 Other hyperlipidemia; Z85.46 Personal history of malignant neoplasm of prostate
CPT/HCPCS: 71045; 80047; 80076; 82550; 82553; 83690; 83880; 84484; 85025; 85610; 93005; 93041; 94760; 96374; 96375; 99285; J2270; J2405

== ENCOUNTER → 2019-02-22 | Outpatient (CLI) | payer MEDICARE ==
[~2019-02-22] MED LIST changes: +LEVO25TA5; +PROT1TAB2 PO
[2019-02-22 13:42] LABS: CALCIUM LEVEL 8.8 MG/DL (8.8-10.2); CREATININE FOR GFR 1.82 MG/DL (0.70-1.30); GLOMERULAR FILTRATION RATE 38.1 (>35); POTASSIUM SERUM 3.9 MEQ/L (3.5-5.1)
== END ==
LOC: M LAB 12:44
PROVIDERS: ATTEND Physician Assistant
DX: I25.10 Atherosclerotic heart disease of native coronary artery without angina pectoris (principal)

== ENCOUNTER → 2019-07-25 | Outpatient (CLI) | payer MEDICARE ==
[~2019-07-25] MED LIST changes: +CARV3.12 PO; +ENTR1TAB PO; +FURO40TA2 PO; +LEVO50TA45 PO; +POTA10TA16 PO; +SERT-141 PO
--- NOTE | 2019-07-26 02:57 | REP ---
REASON FOR EXAM: Dyspnea. COMPARISON: Multiple, the latest 02/16/2019, a portable exam. Patchy bibasilar opacities have developed since the last exam along with a patchy right upper lobe opacity. The heart is enlarged. The dual-chamber bipolar pacemaker device is unchanged. There is no significant change in appearance of the osseous structures. IMPRESSION: Abnormal opacities suggestive of pneumonia; however, asymmetric pulmonary edema with a left pleural effusion cannot be excluded. Electronically Signed by Wm Saxena DO 07/26/2019 11:11 A
== END ==
LOC: M RAD 14:15
PROVIDERS: ATTEND Physician Assistant
DX: R91.8 Other nonspecific abnormal finding of lung field (principal); R06.02 Shortness of breath; Z95.0 Presence of cardiac pacemaker

== ENCOUNTER 2019-07-26 14:59 | Inpatient (IN) | payer MEDICARE ==
[~2019-07-26] VITALS: Ht 177.8 cm; Wt 94.4 kg
[~2019-07-26 14:59] MED LIST changes: -CARV3.12 PO; -ENTR1TAB PO; -FURO40TA2 PO; -LEVO50TA45 PO; -POTA10TA16 PO; -SERT-141 PO
[2019-07-26] MEDS ORDERED: SERT-141 PO (15:09)
[2019-07-26] MEDS ORDERED: NS 1,000 ML IV SCH (15:45)
[2019-07-26] MEDS ORDERED: IPRATROPIUM 0.5MG/ALBUTEROL 2.5MG INH SOL UD 3ML (DUONEB)(J7620) NEB ONE (15:45)
[2019-07-26 16:15] LABS: BASO % 0.6 % (0.0-1.0); EOS # 0.2 10^3/uL (0.0-0.5); EOS % 2.4 % (0.0-3.0); HEMATOCRIT 36.2 % (42.0-52.0); HEMOGLOBIN 11.9 g/dl (13.5-17.5); LYMPH # 1.1 10^3/uL (1.5-5.0); LYMPH % 15.5 % (24.0-44.0); MEAN CORPUSCULAR HEMOGLOBIN 32.3 pg (27.0-33.0); MEAN CORPUSCULAR HGB CONC 32.9 g/dl (32.0-36.5); MEAN CORPUSCULAR VOLUME 98.4 fl (80.0-96.0); MONO # 0.6 10^3/uL (0.0-0.8); MONO % 8.3 % (0.0-5.0); NEUTROPHILS # 5.1 10^3/uL (1.5-8.5); NEUTROPHILS % 72.6 % (36.0-66.0); PLATELET COUNT, AUTOMATED 210 10^3/uL (150-450); RED BLOOD COUNT 3.68 10^6/uL (4.30-6.10); WHITE BLOOD COUNT 7.1 10^3/uL (4.0-10.0)
[2019-07-26 16:15] LABS: ABG BASE EXCESS 4.5 (-2.0-2.0); ABG HCO3 28.4 MEQ/L (22.0-26.0); ABG O2 SATURATION 89.8 % (95.0-99.0); ABG PARTIAL PRESSURE CO2 39.6 mmHg (35.0-45.0); ABG PARTIAL PRESSURE O2 57.8 mmHg (75.0-100.0); ABG STANDARD HCO3 28.3 MEQ/L (22.0-26.0); ABG TOTAL CO2 29.6 MEQ/L (23.0-31.0); ABG pH (ARTERIAL) 7.473 UNITS (7.350-7.450)
[2019-07-26 16:30] LABS: INR 1.28; PROTHROMBIN TIME 15.7 SECONDS (11.8-14.0)
[2019-07-26 16:49] LABS: BILIRUBIN,DIRECT 0.3 MG/DL (0.0-0.2); BILIRUBIN,TOTAL 0.9 MG/DL (0.2-1.0); CALCIUM LEVEL 8.2 MG/DL (8.8-10.2); CK-MB VALUE MASS 1.5 NG/ML (<3.6); CREATININE FOR GFR 1.53 MG/DL (0.70-1.30); GLOMERULAR FILTRATION RATE 46.4 (>35); MB/CK RELATIVE INDEX 3.19 (< OR =4); POTASSIUM SERUM 3.4 MEQ/L (3.5-5.1); THYROID STIMULATING HORMONE 3.28 uIU/ML (0.358-3.740); TOTAL PROTEIN 6.1 GM/DL (6.4-8.2); TROPONIN I 0.03 NG/ML (< 0.10)
[2019-07-26] MEDS ORDERED: FUROSEMIDE 40MG/4ML VIAL (J1940) IV ONE (17:00)
[2019-07-26] MEDS ORDERED: FURO40TA2 PO (17:18)
[2019-07-26] MEDS ORDERED: ENTR1TAB PO (17:18)
[2019-07-26] MEDS ORDERED: POTA10TA16 PO (17:18)
[2019-07-26] MEDS ORDERED: CARV3.12 PO (17:18)
[2019-07-26] MEDS ORDERED: AMIO200T PO (17:18)
[2019-07-26] MEDS ORDERED: LEVO50TA45 PO (17:18)
--- NOTE | 2019-07-26 17:20 | HPEPDOC ---
[facility] Medical History & Physical Date of Admission Jul 26, 2019 Date of Service: Jul 26, 2019 Attending Physician: LEONARD DAVIS MD History and Physical TIME OF SERVICE: 5:38 PM CHIEF COMPLAINT: Shortness of breath HISTORY OF PRESENT ILLNESS: This is an 84. Abdomen who presented with complaints of shortness of breath for a few weeks. He saw his building architect yesterday who did a chest x-ray and called his PCP because her findings consistent with possible pneumonia. The patient's PCP called him and told him to the hospital. The patient has been using his CPAP machine during the day, which helps his shortness of breath, a little bit. He thinks that his shortness of breath is worse when he tries to talk with people and he has difficulties walking more than 300 feet without having to stop to take a breath. At his baseline. He uses one pillow behind his head to sleep and has not had to use more pillows at night. He thinks she's gained about 10 pounds and admits to eating more than he should. Occasionally his legs swell up. But he doesn't think they're more swollen than usual right now. He denies having fevers, runny nose, cough, or chest pain. REVIEW OF SYSTEMS: 12 point review of systems negative except as listed in HPI PAST MEDICAL/ SURGICAL HISTORY: Chronic systolic CHF , 45% Tachybradycardia syndrome Chronic CAD ? Status post placement of stents at [facility] 2019 Chronic HTN Hypothyroidism CKD 3 Prostate cancer status post seeding procedure. ELADIA on CPAP. Right knee surgery due to ureteral obstruction, Appendectomy SOCIAL HISTORY: He doesn't smoke FAMILY HISTORY: Hypertension Arthritis Diabetes Glaucoma ALLERGIES: Please see below. HOME MEDICATIONS: Please see below. PHYSICAL EXAMINATION: Vital Signs Date Time Temp Pulse Resp B/P (MAP) Pulse Ox O2 Delivery O2 Flow Rate FiO2 07/26/19 15:00 98.7 88 28 124/67 (86) 94 Room Air 07/26/19 16:15 2.0 GEN: well-nourished / well developed/ NAD INTEGUMENT: not flushed HEENT: NCAT / lips acyanotic /mucus membranes moist and pink CVS: RRR/NMRG/ radial pulses intact /trace lower extremity edema LUNGS: Has difficulties speaking full sentences without stopping to take a breath / no coughing / breath sounds are diminished bilaterally MSK/EXTREMITIES: range of motion intact in all 4 extremities NEURO: CN 2-12 are grossly intact / speech is not dysarthric PSYCH: alert and oriented to person place and time/ able to understand and follow all commands LABORATORY DATA: Blood Gas Bicarbonate Standard 28.3H, Arterial Blood pH 7.473H, Arterial Blood Partial Pressure CO2 39.6, Arterial Blood Partial Pressure O2 57.8L, Arterial Blood Total CO2 29.6, Arterial Blood HCO3 28.4H, Arterial Blood Base Excess 4.5H, Arterial Blood Oxygen Saturation 89.8L 07/26/19 16:06: Immature Granulocyte % (Auto) 0.6, Neutrophils (%) (Auto) 72.6H, Lymphocytes (%) (Auto) 15.5L, Monocytes (%) (Auto) 8.3H, Eosinophils (%) (Auto) 2.4, Basophils (%) (Auto) 0.6, Neutrophils # (Auto) 5.1, Lymphocytes # (Auto) 1.1L, Monocytes # (Auto) 0.6, Eosinophils # (Auto) 0.2, Basophils # (Auto) 0.0, Nucleated Red Blood Cells % (auto) 0.0, Prothrombin Time 15.7H, Prothromb Time International Ratio 1.28, Anion Gap 7L, Glomerular Filtration Rate 46.4, Lactic Acid Level 1.2, Calcium Level 8.2L, Total Bilirubin 0.9, Direct Bilirubin 0.3H, Aspartate Amino Transf (AST/SGOT) 15, Alanine Aminotransferase (ALT/SGPT) 23, Alkaline Phosphatase 70, Total Creatine Kinase 47, Creatine Kinase MB 1.5, Creatine Kinase MB Relative Index 3.19, Troponin I 0.03, OR-Tuy-O-Type Natriuretic Peptide 18445E, Total Protein 6.1L, Albumin 3.0L, Albumin/Globulin Ratio 1.0, Thyroid Stimulating Hormone (TSH) 3.280 IMAGING: "IMPRESSION: Abnormal opacities suggestive of pneumonia; however, asymmetric pulmonary edema with a left pleural effusion cannot be excluded." MICROBIOLOGY: 07/26/19 Respiratory Virus Panel (PCR) ([facility]) - Final, Complete ASSESSMENT: Mr. Kraft is an 84-year-old , history of chronic systolic CHF, CKD 3, hypothyroidism, tachybradycardia syndrome, HTN, and ELADIA who is admitted for evaluation of dyspnea secondary to acute systolic CHF. PLAN: 1. Acute systolic CHF (EF 40-45%) Possibly due to noncompliance with salt and fluid restriction. BNP is elevated. Despite findings of possible pneumonia on chest x-ray, the patient clinically doesn't have signs of pneumonia Plan: Admit to medical floor/follow-up I's and O's and daily weights/ follow-up serum troponins/ lasix / Coreg / Entreso 2. Macrocytic anemia - monitor CBC 3. Mild hypokalemia - PO potassium and follow-up serum magnesium 4. CKD 3- follow-up BMP 5. Tachybradycardia syndrome - has pacemaker in place / amiodarone 6. Chronic CAD ? Status post placement of stents at [place] [address] - ASA, atorvastatin, Coreg, clopidogrel 7. Chronic HTN - Coreg 8. Hypothyroidism - levothyroxine 9. ELADIA - own CPAP DVT PROPHYLAXIS: Lovenox DISPOSITION: Pending clinical course Home Medications Scheduled Allopurinol (Zyloprim) 300 Mg Tablet, 300 MG PO DAILY Amiodarone HCl (Amiodarone HCl) 200 Mg Tablet, 200 MG PO BID Aspirin (Ecotrin) 81 Mg Tablet.dr, 81 MG PO DAILY Atorvastatin Calcium (Atorvastatin Calcium) 20 Mg Tablet, 20 MG PO QHS Calcium Carbonate/Vitamin D3 (Calcium 600-Vit D3 400 Tablet) 1 Each Tablet, 1 TAB PO DAILY Carvedilol (Carvedilol) 3.125 Mg Tablet, 3.125 MG PO BID Clopidogrel Bisulfate (Plavix) 75 Mg Tablet, 75 MG PO QHS Cyanocobalamin (Vitamin B-12) (Vitamin B12) 2,500 Mcg Tablet, 2,500 MCG PO DAILY Finasteride (Finasteride) 5 Mg Tablet, 5 MG PO QHS Furosemide (Furosemide) 40 Mg Tablet, 40 MG PO DAILY ON 07/25/19, PATIENT WAS INCREASED TO 80MG QAM AND 40MG QHS FOR 2 DAYS, ON 07/27/19, PATIENT TO DECREASE BACK TO 40MG DAILY Levothyroxine Sodium (Levoxyl) 50 Mcg Tablet, 50 MCG PO DAILY Potassium Chloride (Potassium Chloride) 10 Meq Tab.er.prt, 10 MEQ PO BID Sacubitril/Valsartan (Entresto 24 mg-26 mg Tablet) 1 Each Tablet, 1 TAB PO BID Sertraline Hcl (Sertraline HCl) 50 Mg Tablet, 50 MG PO QHS Tolterodine Tartrate (Tolterodine Tartrate ER) 2 Mg Cap.er.24h, 2 MG PO QHS Scheduled PRN Acetaminophen (Tylenol Arthritis) 650 Mg Tablet.er, 650 MG PO Q8H PRN for PAIN Allergies Coded Allergies: No Known Allergies (Unverified , 02/16/19) A-FIB/CHADSVASC A-FIB History Current/History of A-Fib/PAF?: No Current PO Anticoag Therapy: No LEONARD DAVIS MD Jul 26, 2019 17:20
[2019-07-26] MEDS ORDERED: MOM 30ML SUSPENSION UDC PO PRN (17:30)
[2019-07-26] MEDS ORDERED: ACETAMINOPHEN TAB 650MG DOSE (2X325MG) PO PRN (17:30)
[2019-07-26] MEDS ORDERED: MAALOX 30 ML SUSP *UDC PO PRN (17:30)
[2019-07-26 19:48] VITALS: BP 116/84
--- NOTE | 2019-07-26 20:18 | ECGEPIP ---
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
[2019-07-26] MEDS: FUROSEMIDE 40MG/4ML VIAL (J1940) IV SCH (21:09)
[2019-07-26 22:00] VITALS: BP 121/82
[2019-07-26] MEDS ORDERED: POTASSIUM CHLORIDE 10 MEQ SR TABLET PO ONE (22:30)
[2019-07-26] MEDS: CARVedilol 3.125 MG TAB PO SCH (23:17)
[2019-07-26] MEDS: CLOPIDOGREL 75 MG TAB PO SCH (23:18)
[2019-07-26] MEDS: FINASTERIDE 5 MG TAB PO SCH (23:18)
[2019-07-26] MEDS: SERTRALINE HCL 50 MG TAB PO SCH (23:18)
[2019-07-26] MEDS: AMIODARONE 200 MG TAB (PACERONE) PO SCH (23:18)
[2019-07-26] MEDS: ATORVASTATIN 20 MG TAB PO SCH (23:19)
[2019-07-26] MEDS: POTASSIUM CHLORIDE 10 MEQ SR TABLET PO SCH (23:19)
[2019-07-26] MEDS: ENTRESTO 24-26MG TABLET (SACUBITRIL/VALSARTAN) PO SCH (23:19)
[2019-07-27] MEDS: TOLTERODINE TARTRATE 2 MG LA CAP (DETROL LA) PO SCH ×2 (00:01→20:38)
[2019-07-27 02:00] VITALS: BP 123/78
[2019-07-27 02:37] LABS: HEMATOCRIT 35.8 % (42.0-52.0); MEAN CORPUSCULAR HEMOGLOBIN 33.3 pg (27.0-33.0); MEAN CORPUSCULAR HGB CONC 33.5 g/dl (32.0-36.5); MEAN CORPUSCULAR VOLUME 99.4 fl (80.0-96.0); PLATELET COUNT, AUTOMATED 222 10^3/uL (150-450); WHITE BLOOD COUNT 8.8 10^3/uL (4.0-10.0)
[2019-07-27 03:03] LABS: CALCIUM LEVEL 8.5 MG/DL (8.8-10.2); CREATININE FOR GFR 1.41 MG/DL (0.70-1.30); MAGNESIUM LEVEL 2.3 MG/DL (1.8-2.4); POTASSIUM SERUM 3.5 MEQ/L (3.5-5.1)
[2019-07-27] MEDS: FUROSEMIDE 40MG/4ML VIAL (J1940) IV SCH ×4 (04:09→16:41)
[2019-07-27] MEDS: LEVOTHYROXINE 50MCG TABLET (0.05MG) PO SCH (06:12)
[2019-07-27] MEDS: CYANOCOBALAMIN 500 MCG TAB PO SCH (08:43)
[2019-07-27] MEDS: ENOXAPARIN 40MG/0.4ML SYRINGE (J1650 PER 10MG) SC SCH (08:43)
[2019-07-27] MEDS: ASPIRIN 81 MG ENTERIC TAB PO SCH (08:43)
[2019-07-27] MEDS: ENTRESTO 24-26MG TABLET (SACUBITRIL/VALSARTAN) PO SCH (08:45)
[2019-07-27] MEDS: allopurinoL 300 MG TAB PO SCH (08:45)
[2019-07-27] MEDS: POTASSIUM CHLORIDE 10 MEQ SR TABLET PO SCH ×2 (08:45→20:38)
[2019-07-27] MEDS: AMIODARONE 200 MG TAB (PACERONE) PO SCH ×2 (08:47→20:38)
[2019-07-27] MEDS: CALCIUM/VITAMIN D 500 MG TAB PO SCH (08:47)
[2019-07-27] MEDS: CARVedilol 3.125 MG TAB PO SCH ×2 (08:47→20:40)
[2019-07-27] MEDS ORDERED: CALCIUM/VITAMIN D 500 MG TAB PO SCH (09:00)
[2019-07-27 13:05] LABS: CALCIUM LEVEL 8.8 MG/DL (8.8-10.2); CREATININE FOR GFR 1.67 MG/DL (0.70-1.30); GLOMERULAR FILTRATION RATE 41.9 (>35); MAGNESIUM LEVEL 2.5 MG/DL (1.8-2.4); POTASSIUM SERUM 3.7 MEQ/L (3.5-5.1)
[2019-07-27 14:00] VITALS: BP 114/63
--- NOTE | 2019-07-27 18:14 | IPNPDOC ---
Date Seen The patient was seen on 07/27/19. Progress Note SUBJECTIVE: Patient was seen and examined this morning. He currently has no complaints. He states his shortness of breath has improved although he is requiring supplemental oxygen. He otherwise denies any chest pain. No adverse events were reported overnight OBJECTIVE PHYSICAL EXAMINATION: VITAL SIGNS: Please see below. GENERAL: Awake, alert, and oriented. Appears in no acute distress. Sitting on edge of bed comfortably HEENT: Atraumatic, normocephalic. eyes are nonicteric. trachea is midline. Mucous membranes are pink and moist CARDIOVASCULAR: Normal S1, S2. Distant heart sounds. No clicks, rubs, or murmurs RESPIRATORY: Reduced although clear vesicular breath sounds. Bibasilar crackles present bilaterally. No wheezes or rhonchi. Symmetric chest expansion ABDOMINAL: Soft, nondistended. Nontender. Normoactive bowel sounds throughout EXTREMITIES: No edema. Full and equal pulses in bilateral upper and lower extremities NEUROLOGICAL: No focal neurological deficits PSYCHOLOGICAL: Mood and affect appear appropriate LABORATORY DATA, IMAGING STUDIES, MICROBIOLOGY: Please see below. DVT prophylaxis ordered?: Lovenox ASSESSMENT AND PLAN: Patient is an 84 year old male who presented to the [facility] ER with complaint of shortness of breath and increased weight gain and found to be in likely acute CHF PROBLEMS: 1. Acute decompensated Congestive heart failure EF 40-45% -Patient presented with shortness of breath and increased leg swelling. Elevated BNP in ER. Patient has received IV lasix. He has diuresed. -Cr increased today. Likely secondary to combination lasix and Entresto -Will hold Entresto -Will change lasix dosing to 40 mg BID -Will replenish electrolytes as needed 2. Acute Kidney Injury likely 2/2 diuresis -Will monitor Cr -Hold nephrotoxic agents 3. NSVT -Patient had 5 beats of asymptomatic nonsustained ventricular tachycardia. -Will continue to monitor on tele -Continue 200mg BID -Continue Carvedilol 4. ASCVD s/p stent placement at [facility] in 2019 -Continue ASA, Atorvastatin, Coreg, Clopidogrel 5. Hypothyroidism -Continue levothyroxine 6. DVT Prophylaxis -Lovenox VS, I&O, 24H, Fishbone Vital Signs/I&O Vital Signs Date Time Temp Pulse Resp B/P (MAP) Pulse Ox O2 Delivery O2 Flow Rate FiO2 07/27/19 14:00 98.0 70 18 114/63 (80) 97 Room Air 07/27/19 09:00 2.0 I&O- Last 24 Hours up to 6 AM 07/27/19 06:00 Intake Total 875 ml Output Total 1900 ml Balance -1025 ml Laboratory Data 24H LABS Laboratory Tests 2 07/26/19 16:03: Blood Gas Bicarbonate Standard 28.3H, Arterial Blood pH 7.473H, Arterial Blood Partial Pressure CO2 39.6, Arterial Blood Partial Pressure O2 57.8L, Arterial Blood Total CO2 29.6, Arterial Blood HCO3 28.4H, Arterial Blood Base Excess 4.5H, Arterial Blood Oxygen Saturation 89.8L 07/26/19 16:06: Immature Granulocyte % (Auto) 0.6, Neutrophils (%) (Auto) 72.6H, Lymphocytes (%) (Auto) 15.5L, Monocytes (%) (Auto) 8.3H, Eosinophils (%) (Auto) 2.4, Basophils (%) (Auto) 0.6, Neutrophils # (Auto) 5.1, Lymphocytes # (Auto) 1.1L, Monocytes # (Auto) 0.6, Eosinophils # (Auto) 0.2, Basophils # (Auto) 0.0, Nucleated Red Blood Cells % (auto) 0.0, Prothrombin Time 15.7H, Prothromb Time International Ratio 1.28, Anion Gap 7L, Glomerular Filtration Rate 46.4, Lactic Acid Level 1.2, Calcium Level 8.2L, Total Bilirubin 0.9, Direct Bilirubin 0.3H, Aspartate Amino Transf (AST/SGOT) 15, Alanine Aminotransferase (ALT/SGPT) 23, Alkaline Phosphatase 70, Total Creatine Kinase 47, Creatine Kinase MB 1.5, Creatine Kinase MB Relative Index 3.19, Troponin I 0.03, FW-Aub-V-Type Natriuretic Peptide 72283F, Total Protein 6.1L, Albumin 3.0L, Albumin/Globulin Ratio 1.0, Thyroid Stimulating Hormone (TSH) 3.280 07/26/19 18:11: Troponin I 0.04# 07/26/19 20:16: Troponin I 0.04 07/26/19 23:27: Magnesium Level 2.4, Troponin I 0.03# 07/27/19 02:20: Magnesium Level 2.3, Troponin I 0.03, Nucleated Red Blood Cells % (auto) 0.0, Anion Gap 7L, Glomerular Filtration Rate 51.0, Calcium Level 8.5L 07/27/19 12:20: Magnesium Level 2.5H, Anion Gap 6L, Glomerular Filtration Rate 41.9, Calcium Level 8.8 CBC/BMP Laboratory Tests 07/26/19 16:06 07/27/19 02:20 07/27/19 12:20 Microbiology Microbiology 07/26/19 Respiratory Virus Panel (PCR) ([facility]) - Final, Complete Attending Note I have seen and examined the patient. I agree with the findings and plan or care as documented in the residents note. CARROLL WEEKS DO Jul 27, 2019 16:12 LAURI PATTERSON MD Aug 01, 2019 19:55
[2019-07-27] MEDS: CLOPIDOGREL 75 MG TAB PO SCH (20:38)
[2019-07-27] MEDS: FINASTERIDE 5 MG TAB PO SCH (20:38)
[2019-07-27] MEDS: ATORVASTATIN 20 MG TAB PO SCH (20:38)
[2019-07-27] MEDS: SERTRALINE HCL 50 MG TAB PO SCH (20:38)
[2019-07-28 02:00] VITALS: BP 128/76
[2019-07-28 06:00] VITALS: BP 125/73
[2019-07-28] MEDS: LEVOTHYROXINE 50MCG TABLET (0.05MG) PO SCH (06:21)
[2019-07-28] MEDS: CYANOCOBALAMIN 500 MCG TAB PO SCH (08:23)
[2019-07-28] MEDS: POTASSIUM CHLORIDE 10 MEQ SR TABLET PO SCH ×2 (08:24→20:13)
[2019-07-28] MEDS: allopurinoL 300 MG TAB PO SCH (08:24)
[2019-07-28] MEDS: ASPIRIN 81 MG ENTERIC TAB PO SCH (08:24)
[2019-07-28] MEDS: CALCIUM/VITAMIN D 500 MG TAB PO SCH (08:24)
[2019-07-28] MEDS: ENOXAPARIN 40MG/0.4ML SYRINGE (J1650 PER 10MG) SC SCH (08:25)
[2019-07-28 08:38] LABS: CALCIUM LEVEL 8.6 MG/DL (8.8-10.2); CREATININE FOR GFR 1.59 MG/DL (0.70-1.30); GLOMERULAR FILTRATION RATE 44.4 (>35); POTASSIUM SERUM 3.4 MEQ/L (3.5-5.1)
[2019-07-28 08:41] LABS: HEMATOCRIT 37.3 % (42.0-52.0); HEMOGLOBIN 12.5 g/dl (13.5-17.5); MEAN CORPUSCULAR HGB CONC 33.5 g/dl (32.0-36.5); MEAN CORPUSCULAR VOLUME 101.4 fl (80.0-96.0); PLATELET COUNT, AUTOMATED 226 10^3/uL (150-450); RED BLOOD COUNT 3.68 10^6/uL (4.30-6.10); WHITE BLOOD COUNT 7.6 10^3/uL (4.0-10.0)
[2019-07-28] MEDS: CARVedilol 3.125 MG TAB PO SCH ×2 (09:00→20:14)
[2019-07-28] MEDS: FUROSEMIDE 40MG/4ML VIAL (J1940) IV SCH (09:00)
[2019-07-28] MEDS: AMIODARONE 200 MG TAB (PACERONE) PO SCH ×2 (09:17→20:12)
[2019-07-28 10:00] VITALS: BP 103/59
[2019-07-28] MEDS ORDERED: POTASSIUM CHLORIDE 10 MEQ SR TABLET PO ONE (10:00)
--- NOTE | 2019-07-28 12:19 | IPNPDOC ---
Date Seen The patient was seen on 07/28/19. Progress Note SUBJECTIVE: Patient was seen and examined this morning. He currently has no complaints. There have been no adverse events reported. The patient was noted to be slightly hypotensive this morning however had no complaints. He denies any shortness of breath or chest pain. OBJECTIVE PHYSICAL EXAMINATION: VITAL SIGNS: Please see below. GENERAL: Awake, alert, and oriented. Appears in no acute distress. Sitting in chair comfortably eating breakfast HEENT: Atraumatic, normocephalic. eyes are nonicteric. trachea is midline. Mucous membranes are pink and moist CARDIOVASCULAR: Normal S1, S2. Distant heart sounds. No clicks, rubs, or murmurs RESPIRATORY: Reduced although clear vesicular breath sounds. Bibasilar crackles present bilaterally. No wheezes or rhonchi. Symmetric chest expansion ABDOMINAL: Soft, nondistended. Nontender. Normoactive bowel sounds throughout EXTREMITIES: No edema. Full and equal pulses in bilateral upper and lower extremities NEUROLOGICAL: No focal neurological deficits PSYCHOLOGICAL: Mood and affect appear appropriate LABORATORY DATA, IMAGING STUDIES, MICROBIOLOGY: Please see below. DVT prophylaxis ordered?: Lovenox ASSESSMENT AND PLAN: Patient is an 84 year old male who presented to the [facility] ER with complaint of shortness of breath and increased weight gain and found to be in likely acute CHF PROBLEMS: 1. Acute decompensated Congestive heart failure EF 40-45% -Patient presented with shortness of breath and increased leg swelling. Elevated BNP in ER. Patient has received IV lasix. -Patient developed an AIXA yesterday -Will hold Entresto -Lasix to be on hold today. Patient appears close to euvolemia -Will start patients home Lasix 40mg PO tomorrow -Will replenish electrolytes as needed 2. Acute Kidney Injury likely 2/2 diuresis -Cr improved slightly. Will continue to hold entresto. Will hold additional lasix today in light of soft BP and AIXA -Will continue to trend Cr 3. NSVT -Patient had 5 beats of asymptomatic nonsustained ventricular tachycardia yesterday. No further reported events -Will continue to monitor on tele -Continue 200mg BID -Carvedilol held today due to soft BP 4. ASCVD s/p stent placement at [facility] in 2019 -Continue ASA, Atorvastatin, Coreg, Clopidogrel 5. Hypothyroidism -Continue levothyroxine 6. DVT Prophylaxis -Lovenox DISPOSITION: Likely discharge in 24-48 hours As preceptor for this patient I was fully available. All aspects of the patient interview, examination, medical decision making process, and medical care plan development were reviewed and approved. Aware and concur with the plan as stated in the body of this note and will attest to such by my cosignature. VS, I&O, 24H, Fishbone Vital Signs/I&O Vital Signs Date Time Temp Pulse Resp B/P (MAP) Pulse Ox O2 Delivery O2 Flow Rate FiO2 07/28/19 10:00 97.5 70 18 103/59 (74) 92 Room Air 07/28/19 09:00 0.0 I&O- Last 24 Hours up to 6 AM 07/28/19 06:00 Intake Total 1915 ml Output Total 2125 ml Balance -210 ml Laboratory Data 24H LABS Laboratory Tests 2 07/27/19 12:20: Anion Gap 6L, Glomerular Filtration Rate 41.9, Calcium Level 8.8, Magnesium Level 2.5H 07/28/19 07:44: Anion Gap 6L, Glomerular Filtration Rate 44.4, Calcium Level 8.6L, Nucleated Red Blood Cells % (auto) 0.0 CBC/BMP Laboratory Tests 07/27/19 12:20 07/28/19 07:44 Microbiology Microbiology 07/26/19 Respiratory Virus Panel (PCR) ([facility]) - Final, Complete CARROLL WEEKS DO Jul 28, 2019 12:19 JONES MOREJON MD Aug 01, 2019 14:07
[2019-07-28 14:00] VITALS: BP 119/67
[2019-07-28 18:00] VITALS: BP 119/67
[2019-07-28] MEDS: FINASTERIDE 5 MG TAB PO SCH (20:12)
[2019-07-28] MEDS: ATORVASTATIN 20 MG TAB PO SCH (20:12)
[2019-07-28] MEDS: TOLTERODINE TARTRATE 2 MG LA CAP (DETROL LA) PO SCH (20:12)
[2019-07-28] MEDS: CLOPIDOGREL 75 MG TAB PO SCH (20:12)
[2019-07-28] MEDS: SERTRALINE HCL 50 MG TAB PO SCH (20:12)
[2019-07-28 22:00] VITALS: BP 137/74
[2019-07-29 02:00] VITALS: BP 134/74
[2019-07-29] MEDS: LEVOTHYROXINE 50MCG TABLET (0.05MG) PO SCH (05:35)
[2019-07-29 06:00] VITALS: BP 134/74
[2019-07-29 06:13] LABS: HEMATOCRIT 36.4 % (42.0-52.0); HEMOGLOBIN 11.9 g/dl (13.5-17.5); MEAN CORPUSCULAR HEMOGLOBIN 32.9 pg (27.0-33.0); MEAN CORPUSCULAR HGB CONC 32.7 g/dl (32.0-36.5); MEAN CORPUSCULAR VOLUME 100.6 fl (80.0-96.0); PLATELET COUNT, AUTOMATED 228 10^3/uL (150-450); RED BLOOD COUNT 3.62 10^6/uL (4.30-6.10); WHITE BLOOD COUNT 7.5 10^3/uL (4.0-10.0)
[2019-07-29 07:55] LABS: CALCIUM LEVEL 8.6 MG/DL (8.8-10.2); CREATININE FOR GFR 1.45 MG/DL (0.70-1.30); GLOMERULAR FILTRATION RATE 49.4 (>35); POTASSIUM SERUM 3.9 MEQ/L (3.5-5.1)
[2019-07-29] MEDS: allopurinoL 300 MG TAB PO SCH (08:11)
[2019-07-29] MEDS: CARVedilol 3.125 MG TAB PO SCH ×2 (08:11→20:27)
[2019-07-29] MEDS: ENOXAPARIN 40MG/0.4ML SYRINGE (J1650 PER 10MG) SC SCH (08:11)
[2019-07-29] MEDS: POTASSIUM CHLORIDE 10 MEQ SR TABLET PO SCH ×2 (08:11→20:27)
[2019-07-29] MEDS: AMIODARONE 200 MG TAB (PACERONE) PO SCH ×2 (08:12→20:27)
[2019-07-29] MEDS: CALCIUM/VITAMIN D 500 MG TAB PO SCH (08:12)
[2019-07-29] MEDS: ASPIRIN 81 MG ENTERIC TAB PO SCH (08:12)
[2019-07-29] MEDS: CYANOCOBALAMIN 500 MCG TAB PO SCH (08:12)
[2019-07-29 10:00] VITALS: BP 115/71
[2019-07-29] MEDS: FUROSEMIDE 40 MG TAB PO SCH (10:50)
--- NOTE | 2019-07-29 13:20 | IPNPDOC ---
Date Seen The patient was seen on 07/29/19. Progress Note SUBJECTIVE: Patient was seen and examined this morning. There have been no adverse events reported overnight. Currently states that he does not feel short of breath and states he feels as if he has improved. Denies chest pain. OBJECTIVE PHYSICAL EXAMINATION: VITAL SIGNS: Please see below. GENERAL: Awake, alert, and oriented. Appears in no acute distress. Sitting in chair comfortably eating breakfast HEENT: Atraumatic, normocephalic. eyes are nonicteric. trachea is midline. Mucous membranes are pink and moist CARDIOVASCULAR: Normal S1, S2. Distant heart sounds. No clicks, rubs, or murmurs RESPIRATORY: Reduced although clear vesicular breath sounds. Bibasilar crackles present. No wheezes or rhonchi. Symmetric chest expansion ABDOMINAL: Soft, nondistended. Nontender. Normoactive bowel sounds throughout EXTREMITIES: No edema. Full and equal pulses in bilateral upper and lower extremities NEUROLOGICAL: No focal neurological deficits PSYCHOLOGICAL: Mood and affect appear appropriate LABORATORY DATA, IMAGING STUDIES, MICROBIOLOGY: Please see below. DVT prophylaxis ordered?: Lovenox ASSESSMENT AND PLAN: Patient is an 84 year old male who presented to the [facility] ER with complaint of shortness of breath and increased weight gain and found to be in likely acute CHF PROBLEMS: 1. Acute decompensated Congestive heart failure EF 40-45% -Patient presented with shortness of breath and increased leg swelling. Elevated BNP in ER. Patient has received IV lasix. -Patient developed AIXA previously. This has resolved. His entresto remains on hold. Will resume at discharge. -Start Lasix 40mg PO today -Will replenish electrolytes as needed 2. Acute Kidney Injury likely 2/2 diuresis -Cr improved -Will continue entresto tomorrow -Will continue to trend Cr 3. NSVT -Patient has one episode of NSVT on cardiac monitoring during his hospitalization. He was asymptomatic. He has a history of NSVT. -Will continue to monitor on tele -Continue Amiodarone 200mg BID -Carvedilol held today due to soft BP 4. ASCVD s/p stent placement at [facility] in 2019 -Continue ASA, Atorvastatin, Coreg, Clopidogrel 5. Hypothyroidism -Continue levothyroxine 6. DVT Prophylaxis -Lovenox DISPOSITION: Patient has cleared PT. Likely D/C in 24 hours. As preceptor for this patient I was fully available. All aspects of the patient interview, examination, medical decision making process, and medical care plan development were reviewed and approved. Aware and concur with the plan as stated in the body of this note and will attest to such by my cosignature. VS, I&O, 24H, Fishbone Vital Signs/I&O Vital Signs Date Time Temp Pulse Resp B/P (MAP) Pulse Ox O2 Delivery O2 Flow Rate FiO2 07/29/19 08:17 1.0 07/29/19 08:11 72 107/59 07/29/19 06:00 97.7 19 96 Nasal Cannula I&O- Last 24 Hours up to 6 AM 07/29/19 06:00 Intake Total 1620 ml Output Total 965 ml Balance 655 ml Laboratory Data 24H LABS Laboratory Tests 2 07/29/19 05:28: Anion Gap 6L, Glomerular Filtration Rate 49.4, Calcium Level 8.6L 07/29/19 05:31: Nucleated Red Blood Cells % (auto) 0.0 CBC/BMP Laboratory Tests 07/29/19 05:28 07/29/19 05:31 Microbiology Microbiology 07/26/19 Respiratory Virus Panel (PCR) ([facility]) - Final, Complete CARROLL WEEKS DO Jul 29, 2019 13:19 JONES MOREJON MD Aug 01, 2019 14:08
[2019-07-29 14:00] VITALS: BP 117/72
[2019-07-29 18:00] VITALS: BP 118/72
[2019-07-29] MEDS: SERTRALINE HCL 50 MG TAB PO SCH (20:27)
[2019-07-29] MEDS: FINASTERIDE 5 MG TAB PO SCH (20:27)
[2019-07-29] MEDS: ATORVASTATIN 20 MG TAB PO SCH (20:27)
[2019-07-29] MEDS: CLOPIDOGREL 75 MG TAB PO SCH (20:27)
[2019-07-29] MEDS: TOLTERODINE TARTRATE 2 MG LA CAP (DETROL LA) PO SCH (20:27)
[2019-07-29 22:00] VITALS: BP 118/71
[2019-07-30 02:00] VITALS: BP 117/67
[2019-07-30 04:00] VITALS: BP 117/67
[2019-07-30 06:00] VITALS: BP 130/74
[2019-07-30] MEDS: LEVOTHYROXINE 50MCG TABLET (0.05MG) PO SCH (06:05)
[2019-07-30 06:36] LABS: CALCIUM LEVEL 8.8 MG/DL (8.8-10.2); CREATININE FOR GFR 1.4 MG/DL (0.70-1.30); GLOMERULAR FILTRATION RATE 51.4 (>35); POTASSIUM SERUM 3.9 MEQ/L (3.5-5.1)
[2019-07-30] MEDS: ENOXAPARIN 40MG/0.4ML SYRINGE (J1650 PER 10MG) SC SCH (08:30)
[2019-07-30] MEDS: POTASSIUM CHLORIDE 10 MEQ SR TABLET PO SCH (08:31)
[2019-07-30] MEDS: FUROSEMIDE 40 MG TAB PO SCH (08:31)
[2019-07-30] MEDS: CYANOCOBALAMIN 500 MCG TAB PO SCH (08:31)
[2019-07-30] MEDS: ASPIRIN 81 MG ENTERIC TAB PO SCH (08:31)
[2019-07-30] MEDS: allopurinoL 300 MG TAB PO SCH (08:31)
[2019-07-30] MEDS: CALCIUM/VITAMIN D 500 MG TAB PO SCH (08:31)
[2019-07-30] MEDS: AMIODARONE 200 MG TAB (PACERONE) PO SCH (08:32)
[2019-07-30 08:33] VITALS: BP 102/56
[2019-07-30] MEDS: CARVedilol 3.125 MG TAB PO SCH (08:33)
--- NOTE | 2019-07-30 13:24 | DS.PDOC ---
Discharge Summary General Date of Admission Jul 26, 2019 at 17:20 Date of Discharge 07/30/2019 Attending Physician: JONES MOREJON MD Discharge Summary PROCEDURES PERFORMED DURING STAY: [None]. ADMITTING DIAGNOSES: 1. Acute Systolic CHF Exacerbation (EF 40-45%) DISCHARGE DIAGNOSES: 1. Acute Systolic CHF Exacerbation (EF 40-45%) 2. Acute Kidney Injury COMPLICATIONS/CHIEF COMPLAINT: Dyspnea. HISTORY OF PRESENT ILLNESS: Patient is an 84 year old male who presented to the [facility] ER with complaint of shortness of breath for a few weeks. He had been seen by his Panel Cutter who performed a chest x-ray. The patient was sent to the ER for possible pneumonia. The patient had stated that his shortness of breath was worsened by laying flat and that he had been using more pillows to sleep with at night. He had denied and fevers, chills, nausea, vomiting, or chest pain. On presentation to the ER the patient clinically appeared to be in an acute congestive heart failure exacerbation. He did not appear to have a pneumonia. He was afebrile without a leukocytosis. The patient was vitally stable. He was subsequently admitted to hospitalist service for further evaluation and managem ent HOSPITAL COURSE: During the course of his hospitalization he was diuresed with IV lasix. Unfortunately he had developed an acute kidney injury. His lasix was held and his Entresto was stopped. Clinically the patient had noted feeling better and denied shortness of breath. He was requiring 2L of supplemental oxygen. His AIXA improved over the next day and his oral lasix was restarted. The patients hypoxia was felt to be secondary to deconditioning. He worked with physical therapy and was weaned off of supplemental oxygen. He was cleared by physical therapy and subsequently discharged with recommendations to follow-up with his PCP and Panel Cutter for management of his chronic medical conditions DISCHARGE MEDICATIONS: Please see below. ALLERGIES: Please see below. PHYSICAL EXAMINATION ON DISCHARGE: VITAL SIGNS: Please see below. GENERAL: Awake, alert, and oriented. Appears in no acute distress. Sitting in chair comfortably eating breakfast HEENT: Atraumatic, normocephalic. eyes are nonicteric. trachea is midline. Mucous membranes are pink and moist CARDIOVASCULAR: Normal S1, S2. Distant heart sounds. No clicks, rubs, or murmurs RESPIRATORY: Reduced although clear vesicular breath sounds. No wheezes or rhonchi. Symmetric chest expansion ABDOMINAL: Soft, nondistended. Nontender. Normoactive bowel sounds throughout EXTREMITIES: No edema. Full and equal pulses in bilateral upper and lower extremities NEUROLOGICAL: No focal neurological deficits PSYCHOLOGICAL: Mood and affect appear appropriate LABORATORY DATA: Please see below. IMAGING: REASON FOR EXAM: Dyspnea. COMPARISON: Multiple, the latest 02/16/2019, a portable exam. Patchy bibasilar opacities have developed since the last exam along with a patchy right upper lobe opacity. The heart is enlarged. The dual-chamber bipolar pacemaker device is unchanged. There is no significant change in appearance of the osseous structures. IMPRESSION: Abnormal opacities suggestive of pneumonia; however, asymmetric pulmonary edema with a left pleural effusion cannot be excluded. Electronically Signed by Wm Saxena DO 07/26/2019 11:11 A PROGNOSIS: Good ACTIVITY: [As tolerated]. DIET: 2 gram sodium DISCHARGE PLAN: Patient is to be discharged home. He is to follow-up with his PCP in 7-10 days. He is to follow-up with his Panel Cutter for management of his Systolic CHF. He is to continue his medications as prescribed. He is to continue Entresto. Given patients increase in Cr recommend PCP consider repeat renal profile while patient is on Entresto DISPOSITION: . DISCHARGE CONDITION: [Stable]. TIME SPENT ON DISCHARGE: Greater than 30 minutes. As preceptor for this patient I was fully available. All aspects of the patient interview, examination, medical decision making process, and medical care plan development were reviewed and approved. Aware and concur with the plan as stated in the body of this note and will attest to such by my cosignature. Vital Signs/I&Os Vital Signs Date Time Temp Pulse Resp B/P (MAP) Pulse Ox O2 Delivery O2 Flow Rate FiO2 07/30/19 08:37 1.0 07/30/19 08:33 71 102/56 07/30/19 06:00 97.4 19 96 Nasal Cannula I&O- Last 24 Hours up to 6 AM 07/30/19 05:59 Intake Total 1500 ml Output Total 425 ml Balance 1075 ml Laboratory Data Labs 24H Laboratory Tests 2 07/30/19 05:48: Anion Gap 4L, Glomerular Filtration Rate 51.4, Calcium Level 8.8 CBC/BMP Laboratory Tests 07/30/19 05:48 Microbiology Microbiology 07/26/19 Respiratory Virus Panel (PCR) ([facility]) - Final, Complete Discharge Medications Scheduled Allopurinol (Zyloprim) 300 Mg Tablet, 300 MG PO DAILY, (Reported) Amiodarone HCl (Amiodarone HCl) 200 Mg Tablet, 200 MG PO BID, (Reported) Aspirin (Ecotrin) 81 Mg Tablet.dr, 81 MG PO DAILY, (Reported) Atorvastatin Calcium (Atorvastatin Calcium) 20 Mg Tablet, 20 MG PO QHS, (Reported) Calcium Carbonate/Vitamin D3 (Calcium 600-Vit D3 400 Tablet) 1 Each Tablet, 1 TAB PO DAILY, (Reported) Carvedilol (Carvedilol) 3.125 Mg Tablet, 3.125 MG PO BID, (Reported) Clopidogrel Bisulfate (Plavix) 75 Mg Tablet, 75 MG PO QHS, (Reported) Cyanocobalamin (Vitamin B-12) (Vitamin B12) 2,500 Mcg Tablet, 2,500 MCG PO DAILY, (Reported) Finasteride (Finasteride) 5 Mg Tablet, 5 MG PO QHS, (Reported) Furosemide (Furosemide) 40 Mg Tablet, 40 MG PO DAILY, (Reported) ON 07/25/19, PATIENT WAS INCREASED TO 80MG QAM AND 40MG QHS FOR 2 DAYS, ON 07/27/19, PATIENT TO DECREASE BACK TO 40MG DAILY Levothyroxine Sodium (Levoxyl) 50 Mcg Tablet, 50 MCG PO DAILY, (Reported) Potassium Chloride (Potassium Chloride) 10 Meq Tab.er.prt, 10 MEQ PO BID, (Reported) Sacubitril/Valsartan (Entresto 24 mg-26 mg Tablet) 1 Each Tablet, 1 TAB PO BID, (Reported) Sertraline Hcl (Sertraline HCl) 50 Mg Tablet, 50 MG PO QHS, (Reported) Tolterodine Tartrate (Tolterodine Tartrate ER) 2 Mg Cap.er.24h, 2 MG PO QHS, (Reported) Scheduled PRN Acetaminophen (Tylenol Arthritis) 650 Mg Tablet.er, 650 MG PO Q8H PRN for PAIN, (Reported) Allergies Coded Allergies: No Known Allergies (Unverified , 02/16/19) CARROLL WEEKS DO Jul 30, 2019 13:23 JONES MOREJON MD Aug 01, 2019 14:13
== END 2019-07-30 13:23 | disposition home or self-care (01) | DRG 291 ==
LOC: M ED 14:59 → M ED INP 17:20 → ENRESERV 18:24 → M MSPAV 19:48
PROVIDERS: ADMIT Internal Medicine; ATTEND Internal Medicine
DX: I13.0 Hypertensive heart and chronic kidney disease with heart failure and stage 1 through stage 4 chronic kidney disease, or unspecified chronic kidney disease (principal); I50.23 Acute on chronic systolic (congestive) heart failure; N17.9 Acute kidney failure, unspecified; I47.1 Supraventricular tachycardia; Z95.0 Presence of cardiac pacemaker; N18.3 Chronic kidney disease, stage 3 (moderate); Z79.899 Other long term (current) drug therapy; Z79.82 Long term (current) use of aspirin; I25.10 Atherosclerotic heart disease of native coronary artery without angina pectoris; Z95.2 Presence of prosthetic heart valve; E03.9 Hypothyroidism, unspecified; G47.33 Obstructive sleep apnea (adult) (pediatric); Z85.46 Personal history of malignant neoplasm of prostate